=== PATIENT | male | born 1945 | race Caucasian/White ===

== ENCOUNTER 2017-02-08 14:36 | Day surgery (SDC) | payer MEDICARE, OTHER ==
[~2017-02-08] VITALS: Ht 185.4 cm; Wt 125.2 kg
[~2017-02-08 14:36] MED LIST: ALBU83IN INH; ALEV220C2 PO; CELE1CAP4 PO; CETI10CH PO; METO-398 PO; MULTCAP12 PO; SIMV40TA2 PO; SING10TA32 PO; WELLTAB38 PO
[2017-02-08] MEDS ORDERED: LR 1,000 ML IV SCH (14:45)
[2017-02-08] MEDS ORDERED: LEXA1TAB PO (15:04)
[2017-02-08] MEDS ORDERED: MUCI600T37 PO (15:04)
[2017-02-08] MEDS ORDERED: PROPOFOL 200 MG/20 ML VIAL As Ordered ONE (15:44)
[2017-02-08] MEDS ORDERED: LIDOCAINE 2% INJ 100 MG/5 ML SDV (FOR ANES.) As Ordered ONE (15:44)
--- NOTE | 2017-02-08 16:08 | ROOR ---
Patient Name: Avinash Salcedo Procedure Date: 02/08/2017 3:36 PM Date of : 1945 Age: 71 Room: [facility] Gender: Male Note Status: Finalized Procedure: Colonoscopy Indications: High risk colon cancer surveillance: Personal history of non-advanced adenoma, Last colonoscopy: 2012 Providers: Jovan Carvajal MD Referring MD: BS BASURTO MD Requesting Provider: Medicines: Monitored Anesthesia Care Complications: No immediate complications. Procedure: Pre-Anesthesia Assessment: - Prior to the procedure, a History and Physical was performed, and patient medications and allergies were reviewed. The patient is competent. The risks and benefits of the procedure and the sedation options and risks were discussed with the patient. All questions were answered and informed consent was obtained. Patient identification and proposed procedure were verified by the physician, the nurse and the eligibility counselor in the procedure room. Mental Status Examination: alert and oriented. Airway Examination: normal oropharyngeal airway and neck mobility. CV Examination: regular rate and rhythm. Prophylactic Antibiotics: The patient does not require prophylactic antibiotics. Prior Anticoagulants: The patient has taken no previous anticoagulant or antiplatelet agents. ASA Grade Assessment: III - A patient with severe systemic disease. After reviewing the risks and benefits, the patient was deemed in satisfactory condition to undergo the procedure. The anesthesia plan was to use monitored anesthesia care (MAC). Immediately prior to administration of medications, the patient was re-assessed for adequacy to receive sedatives. The heart rate, respiratory rate, oxygen saturations, blood pressure, adequacy of pulmonary ventilation, and response to care were monitored throughout the procedure. The physical status of the patient was re-assessed after the procedure. The Colonoscope was introduced through the anus and advanced to the cecum, identified by appendiceal orifice and ileocecal valve. The colonoscopy was performed without difficulty. The patient tolerated the procedure well. The quality of the bowel preparation was good. Findings: The perianal and digital rectal examinations were normal. Innumerable large-mouthed diverticula were found in the sigmoid colon and distal descending colon. The exam was otherwise without abnormality. Impression: - Severe diverticulosis in the sigmoid colon and in the distal descending colon. - The examination was otherwise normal. - No specimens collected. Recommendation: - Discharge patient to home. - Resume previous diet. - Continue present medications. - Repeat colonoscopy in 5 years for surveillance. oJvan Carvajal MD 02/08/2017 4:07:49 PM Number of Addenda: 0 Note Initiated On: 02/08/2017 3:36 PM Estimated Blood Loss: Estimated blood loss: none.
[2017-02-08 16:25] VITALS: BP 151/84
[2017-02-08] MEDS ORDERED: METOPROLOL SUCC (TopROL XL) 100MG *XL* TAB PO SCH (16:30)
== END 2017-02-08 16:33 | disposition home or self-care (01) ==
LOC: M OPP 14:36
PROVIDERS: ATTEND Surgery
DX: Z12.11 Encounter for screening for malignant neoplasm of colon (principal); Z86.010 Personal history of colon polyps; K57.30 Diverticulosis of large intestine without perforation or abscess without bleeding; I10 Essential (primary) hypertension; G47.30 Sleep apnea, unspecified; F41.9 Anxiety disorder, unspecified; F32.9 Major depressive disorder, single episode, unspecified; N40.0 Benign prostatic hyperplasia without lower urinary tract symptoms; E66.9 Obesity, unspecified; M19.90 Unspecified osteoarthritis, unspecified site; J98.4 Other disorders of lung; Z79.899 Other long term (current) drug therapy

== ENCOUNTER → 2017-09-08 | Outpatient (CLI) | payer MEDICARE, OTHER | LOC: M LRY 17:20 | DX: R05 Cough (principal) | CPT/HCPCS: 71046; G0463 ==

== ENCOUNTER → 2019-04-10 | Outpatient (CLI) | payer MEDICARE, OTHER ==
[~2019-04-10] MED LIST changes: +LEXA1TAB PO; -METO-398 PO; +METO200T28 PO; +MUCI600T37 PO; -SIMV40TA2 PO; +SIMV40TA20 PO
--- NOTE | 2019-04-10 17:19 | REP ---
Urinary tract sonography: History: Chronic kidney disease. Findings: Renal cortical echogenicity pattern is normal and contours are smooth. There is no evidence of hydronephrosis. No cyst or mass is seen. Right renal dimensions are 10.6 x 5.4 x 4.9 cm. Left kidney measures 10.5 x 5.7 x 5.4 cm. Impression: Unremarkable urinary tracts sonography. Electronically Signed by Stu Canales MD 04/10/2019 05:11 P
--- NOTE | 2019-04-10 17:20 | REP ---
Emptying ureteral jets are confirmed on color Doppler interrogation of the bladder lumen bilaterally. Pre void bladder volume is calculated to 136 ml and postvoid volume is calculated at 10 ml. Visualized bladder powell are smooth. No extra vesicle lesion is seen. Impression: Negative limited pelvic bladder sonography. Electronically Signed by Stu Canales MD 04/10/2019 05:11 P
== END ==
LOC: M RAD 15:59
PROVIDERS: ATTEND Internal Medicine Nephrology
DX: N18.3 Chronic kidney disease, stage 3 (moderate) (principal); E11.22 Type 2 diabetes mellitus with diabetic chronic kidney disease; I12.9 Hypertensive chronic kidney disease with stage 1 through stage 4 chronic kidney disease, or unspecified chronic kidney disease; N40.1 Benign prostatic hyperplasia with lower urinary tract symptoms

== ENCOUNTER → 2019-05-01 | Outpatient (CLI) | payer MEDICARE, OTHER ==
--- NOTE | 2019-05-03 03:41 | ECWPNPC ---
PATIENT NAME: BEHZAD SANTIAGO : 1945 GENDER: MALE VISIT DATE: 05/01/2019 DISCHARGE DATE: 05/01/19 1446 VISIT LOCKED DATE TIME: PHYSICIAN: EDUARD BLOOD RESOURCE: EDUARD BLOOD REASON FOR APPOINTMENT 1. CHRONIC NECK AND SHOULDER PX HISTORY OF PRESENT ILLNESS PAIN SCREENING: PATIENT HAS A COMPLAINT OF ACUTE OR CHRONIC PAIN :YES 74-YEAR-OLD MALE IN FOR INITIAL PAIN CONSULT. PATIENT HAS PAIN IN HIS SHOULDER THAT RADIATES DOWN HIS LEFT ARM. HE RATES HIS PAIN AT A 2 OUT OF 10 AND DESCRIBES IT STABBING, AND SHOOTING. WHEN ASKED PATIENT ADMITS TO INJURING HIS SHOULDER APPROXIMATELY ONE YEAR AGO WHEN SWIMMING. HE DOES ADMIT TO INTERMITTENT USE OF A TENS UNIT AT HOME. FALL RISK SCREENING: SCREENING :NO FALLS REPORTED IN THE LAST YEAR CURRENT MEDICATIONS TAKING SINGULAIR 10 MG TABLET 1 TABLET IN THE EVENING ORALLY ONCE A DAY TAKING ZYRTEC ALLERGY 10 MG TABLET 1 TABLET ORALLY ONCE A DAY PRN TAKING CELECOXIB 200 MG CAPSULE 1-2 ORALLY ONCE A DAY TAKING LEXAPRO 10 MG TABLET 1 TABLET ORALLY ONCE A DAY TAKING ROSUVASTATIN CALCIUM 20 MG TABLET 1 TABLET ORALLY ONCE A DAY TAKING LISINOPRIL 10 MG TABLET 1 TABLET ORALLY ONCE A DAY TAKING WELLBUTRIN XL 150 MG TABLET EXTENDED RELEASE 24 HOUR 1 TABLET IN THE MORNING ORALLY ONCE A DAY TAKING MULTIVITAMIN ADULT - TABLET ORALLY DAILY TAKING TYLENOL EXTRA STRENGTH 500 MG TABLET 2 TABLET ORALLY BID TAKING VASCEPA 1 GM CAPSULE 2 CAPSULES WITH MEALS ORALLY TWICE A DAY TAKING METFORMIN HCL 500 MG TABLET 1 TABLET WITH A MEAL ORALLY BID NOT-TAKING ALEVE 220 MG TABLET 1 TABLET WITH FOOD OR MILK NEEDED ORALLY EVERY 12 HRS NOT-TAKING BUPROPION HCL 150 MG TABLET EXTENDED RELEASE 24 HOUR 1 TABLET EVERY MORNING ORALLY ONCE A DAY NOT-TAKING SIMVASTATIN 10 5MG TABLET 1TAB ORAL DAILY NOT-TAKING METOPROLOL SUCCINATE 200 MG TABLET EXTENDED RELEASE ORALLY NOT-TAKING AUGMENTIN 875-125 MG TABLET 1 TABLET ORALLY EVERY 12 HRS NOT-TAKING PREDNISONE 20 MG TABLET 1 TABLET ORALLY BID NOT-TAKING PROAIR HFA 108 (90 BASE) MCG/ACT AEROSOL SOLUTION 2 PUFFS NEEDED INHALATION EVERY 4 HRS NOT-TAKING AVODART 0.5 MG CAPSULE 1 CAP(S) P.O. 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 ALLERGIC RHINITIS LOW BACK PAIN = DDDL-SPINE HLP DEPRESSION HTN ELEVATED PSA DM TYPE II MILD EMPHYSEMA NECK/SHOULDER PAIN ALLERGIES AUGMENTIN: HIVES - ALLERGY SURGICAL HISTORY SINUS SURGERY 1988, 2011 VASECTOMY 1986 BUTTON-TURP VAPORIZATION 06/2012 LEFT KNEE PARTIAL REPLACEMENT 11/2018 RIGHT KNEE PARTIAL REPLACEMENT 02/2019 LOOP RECORDER IMPLANTED 09/2018 FAMILY HISTORY FATHER: 89 YRS, RENAL CARINOMA, DM, [place], PACEMAKER, DIAGNOSED WITH DIABETES, HYPERTENSION MOTHER: ALIVE 92 YRS, PACEMAKER, HTN, ESSENTIAL TREMOR, RESTRICTIVE AIRWAY DISEASE, HYPERTENSION SIBLINGS: ALIVE 60 YRS, OPEN HEART SURGERY 02/2018. DM, HTN, HYPERCHOLESTEROL, DIABETES, HYPERTENSION, UNSPECIFIED HEART DISEASE SON(S): ALIVE, OBESITY = GASTRIC BYPASS, HYPERTENSION DAUGHTER(S): ALIVE, OBESITY = GASTRIC BYPASS 1 SISTER(S) . 1 SON(S) , 1 DAUGHTER(S) . FATEHR - RENAL CANCER W/ METASTASIS TO LUNG AND BONEMOTHER - HIATAL HERNIA, OSTEOPOROSISDAUGHTER - BACK PROBLEMS. SOCIAL HISTORY GENERAL: TOBACCO USE ARE YOU A:FORMER SMOKER SMOKED 1-1.5 PPD STARTED AT 19YRS OLD AND QUIT 2000 HOW LONG HAS IT BEEN SINCE YOU LAST SMOKED?> 10 YEARS HIV / HEP-C SCREENING HIV TEST OFFERED TO PATIENT:YES DATE OFFERED:09/08/2017 TEST ACCEPTED:NO HEP-C TEST OFFERED TO PATIENT:YES DATE OFFERED:09/08/2017 REASON:PATIENT DECLINED TEST ACCEPTED:NO REASON:PATIENT DECLINED BROCHURE PROVIDED TO PATIENTNO EDUCATION LEVEL OF EDUCATION:FINISHED HIGH SCHOOL DIET: CARBOHYDRATE CONTROLLED. LANGUAGE LANGUAGES SPOKEN:ITALIAN DOMESTIC VIOLENCE DO YOU FEEL SAFE IN YOUR ENVIRONMENT?YES RECREATIONAL DRUG USE DRUG USE?NO EXERCISE: WALKS. LEARNING BARRIERS / SPECIAL NEEDS BARRIERS TO LEARNING?NO HEARING IMPAIRED?YES [place] RIGHT EAR = HEARING AID BUT DOESNT WEAR MUCH VISION IMPAIRED?YES :CORRECTIVE LENSES COGNITIVELY IMPAIRED?NO READINESS TO LEARN?YES LEARNING PREFERENCES?NO LEARNING CAPABILITIES PRESENT?YES EMOTIONAL BARRIERS?NO SPECIAL DEVICES?NO GRAPHIC DESIGNER NEEDED?NO PAIN CLINIC PFS, CLERGY, PUBLIC HEALTH REFERRALS HAS THE PATIENT BEEN EDUCATED REGARDING HIS/HER PLAN OF CARE?YES HAS THE PATIENT BEEN EDUCATED REGARDING PAIN, THE RISK FOR PAIN, THE IMPORTANCE OF EFFECTIVE PAIN MANAGEMENT, AND THE PAIN ASSESSMENT PROCESS?YES LATEX QUESTIONNAIRE LATEX ALLERGY : HAVE YOU EVER DEVELOPED ANY TYPE OF REACTION AFTER HANDLING LATEX PRODUCTS SUCH RUBBER GLOVES, CONDOMS, DIAPHRAGMS, BALLOONS, SOCKS, OR UNDERWEAR?NO LATEX ALLERGY : HAVE YOU EVER DEVELOPED ANY TYPE OF REACTION DURING OR AFTER DENTAL APPOINTMENT, VAGINAL/RECTAL EXAMINATION, SURGICAL PROCEDURE, OR ANY OTHER EXPOSURE?NO LATEX RISK : HAVE YOU EVER HAD ANY DIFFICULTY BREATHING OR HIVES AFTER EATING OR HANDLING ANY FRUITS, OR VEGETABLES; SUCH KIWI, BANANAS, STONE FRUITS, OR CHESTNUTSNO LATEX RISK : DO YOU HAVE A PREVIOUS PERSONAL HISTORY OF MORE THAN NINE SURGERIES, SPINA BIFIDA, OR REPEATED CATHERIZATIONS? NO LATEX RISK : ARE YOU FREQUENTLY EXPOSED TO LATEX PRODUCTS IN YOUR OCCUPATION?NO DATE ASKED : 05/01/2019 CAFFEINE CAFFEINE USE?YES COFFEE = 1-2 CUPS PER DAY ADVANCE DIRECTIVE ADVANCE DIRECTIVE DISCUSSED WITH PATIENT:YES HCP - BOY PRUITT EVANGELICAL [id number] CONFUCIANIST NO MORAVIAN BELIEFS THAT WOULD IMPACT HEALTH CARE. MARITAL STATUS: . ALCOHOL SCREENING DID YOU HAVE A DRINK CONTAINING ALCOHOL IN THE PAST YEAR?YES HOW OFTEN DID YOU HAVE A DRINK CONTAINING ALCOHOL IN THE PAST YEAR?MONTHLY OR LESS (1 POINT) HOW MANY DRINKS DID YOU HAVE ON A TYPICAL DAY WHEN YOU WERE DRINKING IN THE PAST YEAR?1 OR 2 (0 POINTS) HOW OFTEN DID YOU HAVE SIX OR MORE DRINKS ON ONE OCCASION IN THE PAST YEAR?NEVER (0 POINTS) POINTS1 INTERPRETATIONNEGATIVE OCCUPATION: RETIRED . SEXUAL HX HAD SEX IN THE LAST 12 MONTHS (VAGINAL, ORAL, OR ANAL)?YES WITHWOMEN ONLY USE PROTECTION?NO HAVE YOU EVER HAD AN STD?NO REVIEWED WITH PATIENT 05/01/2019 8209 JS. HOSPITALIZATION/MAJOR DIAGNOSTIC PROCEDURE SURGICAL RELATED REVIEW OF SYSTEMS REVIEWED BY: PROVIDER: TY AGUIRRE . CONSTITUTIONAL: ANY CHANGE IN YOUR MEDICAL CONDITION? NO . CHILLS NO . FEVER NO . INFECTION: DO YOU HAVE NEW INFECTIONS? NO . DO YOU HAVE HISTORY OF MRSA? NO . MUSCULOSKELETAL: ANY NEW PATTERNS OF PAIN OR NUMBNESS? YES, STATES LESS PAIN IN SHOULDER DUE TO BEING LESS ACTIVE RECENTLY . SYTEMIC LUPUS NO . GASTROENTEROLOGY: ANY NEW CHANGE IN BOWEL CONTROL? NO . BARRETTS ESOPHAGUS NO . CIRRHOSIS NO . HEPATITIS NO . LIVER FAILURE NO . ACID REFLUX NO . UNEXPLAINED WEIGHT LOSS NO . GENITOURINARY: ANY NEW CHANGE IN BLADDER CONTROL? NO . IS THERE A CHANCE YOU COULD BE ? NO . HEMATOLOGY/LYMPH: DO YOU TAKE ANY BLOOD THINNERS? (FOR EXAMPLE- COUMADIN, PLAVIX, AGGRENOX, PLATEL, PRADAXA, OR XARELTO) NO . WHEN WAS YOUR LAST DOSE? DATE: TIME: . LOW PLATELET COUNT NO . SICKLE CELL DISEASE NO . VON WILLIEBRANDS NO . FACTOR V LEIDEN NO . THALLASEMIA NO . ANEMIA NO . EASY BRUISING NO . NEUROLOGY: HAVE YOU FALLEN IN THE PAST 12 MONTHS? NO . ANY NEW EXTREMITY NUMBNESS OR WEAKNESS? YES, STATES NUMBNESS IN FOREARM AND PINKY AND RING FINGERS, LEFT>RIGHT . HEAD INJURY NO . DEMENTIA NO . CEREBRAL PALSY NO . MULTIPLE SCLEROSIS NO . DIZZINESS NO . HEADACHE NO . STROKES NO . VERTIGO NO . CARDIOLOGY: DO YOU HAVE A PACEMAKER OR DEFIBRILLATOR? IMPLANTED LOOP RECORDER - WAS IMPLANTED DUE TO DIZZINESS/LIGHTHEADNESS - HALTER MONITOR SHOWED TACHY RHYTHMS - NO ISSUES SINCE CHANGING DIET OR SINCE IMPLANT . ANGINA NO . HEART ATTACK NO . HEART SURGERY NO . CONGESTIVE HEART FAILURE/FLUID OVERLOAD NO . CHEST PAIN NO . HIGH BLOOD PRESSURE ON MEDICATION(S) . IRREGULAR HEART BEAT NO . RESPIRATORY: HAVE YOU BEEN SICK IN THE PAST WEEK? NO . FEVER NO . FLU LIKE SYMPTOMS? NO . CPAP YES . BYPAP NO . ASTHMA NO . EMPHYSEMA YES - MILD . CHRONIC LUNG DISEASES NO . SHORTNESS OF BREATH ON EXERTION NO . COUGH NO . SNORING NO . INTEGUMENTARY: DO YOU HAVE ANY RASHES OR OPEN SORES? NO . ALLERGIC/IMMUNO: ARE YOU ALLERGIC TO IV DYE? NO . ANY NEW ALLERGIES? NO . PSYCHIATRIC: DO YOU HAVE THOUGHTS OF HURTING YOURSELF OR SOMEONE ELSE? NO . ARE YOU ABUSED, NEGLECTED, OR IN AN UNSAFE ENVIRONMENT? NO . ENDOCRINOLOGY: ARE YOU DIABETIC? YES, TYPE II . THYROID DISORDER NO . OTHER: DO YOU NEED ANY PRESCRIPTIONS? NO . IF YES, PLEASE LIST: ____ . ANY NEW PROBLEMS WITH YOUR MEDICATIONS? NO . WHEN DID YOU LAST EAT? ____ . WHEN DID YOU LAST DRINK? ____ . WHAT DID YOU LAST DRINK? ____ . NAME OF PERSON DRIVING YOU HOME? ____ . DO YOU HAVE ANY OTHER QUESTIONS OR CONCERNS YES, STATES PAIN IN LEFT SHOULDER FROM INJURY APPROXIMATELY 1 YEAR AGO - HAS NOT SUBSIDED WITH MEDICATIONS, BIOWAVE, REST, OR HEAT . EXAMINATION GENERAL EXAMINATION: GENERALNO ACUTE DISTRESS, WELL NOURISHED AND HYDRATED. PSYCHAPPROPRIATE MOOD AND AFFECT . NECK:DENIES POINT TENDERNESS ALONG CERVICAL SPINE, SURROUNDING SKIN SHOWS NO ERYTHEMA, ECCHYMOSIS, INCREASED WARMTH, AND/OR SKIN ERUPTIONS NOTED. PATIENT DENIES INCREASED PAIN AND/OR RADICULAR SYMPTOMS WHEN ASKED TO LIFT ARMS AGAINST RESISTANCE. . LUNGS:CLEAR TO AUSCULTATION BILATERALLY, NO WHEEZES, RHONCHI, RALES. HEART:NO MURMURS, REGULAR RATE AND RHYTHM. MUSCULOSKELETAL:POINT TENDER ALONG JOINT LINE, PATIENT DENIES INCREASED PAIN WITH ABDUCTION OR ADDUCTION OF THE LEFT UPPER EXTREMITY . ASSESSMENTS PAIN IN LEFT SHOULDER - M25.512 (PRIMARY) TREATMENT PAIN IN LEFT SHOULDER MRI : SHOULDER, [id number] CLINICAL NOTES: 74-YEAR-OLD MALE IN FOR INITIAL PAIN CONSULT. GIVEN PRESENTING SYMPTOMS AND RESULTS OF PHYSICAL EXAMINATION RECOMMENDED MRI OF LEFT SHOULDER WITH FOLLOW-UP AFTER DIAGNOSTIC IMAGING. PATIENT HAS EXPRESSED UNDERSTANDING OF AND WAS IN AGREEMENT WITH TREATMENT PLAN. GIVEN TIME TO ASK QUESTIONS AND EXPRESS CONCERNS. PROCEDURE CODES FA211 ESTABILISHED PATIENT [facility] FACILITY CHARGE DISPOSITION & COMMUNICATION FOLLOW UP AFTER IMAGING (REASON: LEFT SHOULDER PAIN, MRI LEFT SHOULDER) ELECTRONICALLY SIGNED BY ZENON ZAVALA ON 05/02/2019 AT 03:48 PM EST DISCLAIMER : THIS IS A VISIT SUMMARY EXTRACTED FROM THE [employer] CHART. IT IS NOT A COPY OF THE [employer] PROGRESS NOTE. SUBHA
== END ==
LOC: M PAIN 13:15
PROVIDERS: ATTEND Family Medicine
DX: M25.512 Pain in left shoulder (principal); G47.30 Sleep apnea, unspecified; Z86.59 Personal history of other mental and behavioral disorders; I10 Essential (primary) hypertension; E11.9 Type 2 diabetes mellitus without complications; J43.9 Emphysema, unspecified; Z87.891 Personal history of nicotine dependence; Z88.1 Allergy status to other antibiotic agents; Z79.84 Long term (current) use of oral hypoglycemic drugs; Z79.899 Other long term (current) drug therapy

== ENCOUNTER → 2019-05-14 | Outpatient (CLI) | payer MEDICARE, OTHER ==
--- NOTE | 2019-05-16 00:44 | ECWPNPC ---
PATIENT NAME: BEHZAD SANTIAGO : 1945 GENDER: MALE VISIT DATE: 05/14/2019 DISCHARGE DATE: 05/14/19 1441 VISIT LOCKED DATE TIME: PHYSICIAN: EDUARD BLOOD RESOURCE: EDUARD BLOOD REASON FOR APPOINTMENT 1. REVIEW MRI HISTORY OF PRESENT ILLNESS HISTORY OF PRESENT ILLNESS: PAIN THE PATIENT DESCRIBES THE PAIN... 74-YEAR-OLD MALE IN FOR CHRONIC PAIN FOLLOW-UP AND TO REVIEW RECENT MRI. HE RATES HIS PAIN CURRENTLY AT A 1 OUT OF 10 AND DESCRIBES IT SORE. FALL RISK SCREENING: SCREENING :NO FALLS REPORTED IN THE LAST YEAR CURRENT MEDICATIONS TAKING SINGULAIR 10 MG TABLET 1 TABLET IN THE EVENING ORALLY ONCE A DAY TAKING ZYRTEC ALLERGY 10 MG TABLET 1 TABLET ORALLY ONCE A DAY PRN TAKING CELECOXIB 200 MG CAPSULE 1-2 ORALLY ONCE A DAY TAKING LEXAPRO 10 MG TABLET 1 TABLET ORALLY ONCE A DAY TAKING ROSUVASTATIN CALCIUM 20 MG TABLET 1 TABLET ORALLY ONCE A DAY TAKING LISINOPRIL 40 MG TABLET 1 TABLET ORALLY ONCE A DAY TAKING WELLBUTRIN XL 150 MG TABLET EXTENDED RELEASE 24 HOUR 1 TABLET IN THE MORNING ORALLY ONCE A DAY TAKING MULTIVITAMIN ADULT - TABLET ORALLY DAILY TAKING TYLENOL EXTRA STRENGTH 500 MG TABLET 1-2 TABLET ORALLY BID TAKING VASCEPA 1 GM CAPSULE 2 CAPSULES WITH MEALS ORALLY TWICE A DAY TAKING METFORMIN HCL 500 MG TABLET 1 TABLET WITH A MEAL ORALLY BID NOT-TAKING ALEVE 220 MG TABLET 1 TABLET WITH FOOD OR MILK NEEDED ORALLY EVERY 12 HRS NOT-TAKING BUPROPION HCL 150 MG TABLET EXTENDED RELEASE 24 HOUR 1 TABLET EVERY MORNING ORALLY ONCE A DAY NOT-TAKING SIMVASTATIN 10 5MG TABLET 1TAB ORAL DAILY NOT-TAKING METOPROLOL SUCCINATE 200 MG TABLET EXTENDED RELEASE ORALLY NOT-TAKING AUGMENTIN 875-125 MG TABLET 1 TABLET ORALLY EVERY 12 HRS NOT-TAKING PREDNISONE 20 MG TABLET 1 TABLET ORALLY BID NOT-TAKING PROAIR HFA 108 (90 BASE) MCG/ACT AEROSOL SOLUTION 2 PUFFS NEEDED INHALATION EVERY 4 HRS NOT-TAKING AVODART 0.5 MG CAPSULE 1 CAP(S) P.O. 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 ALLERGIC RHINITIS LOW BACK PAIN = DDDL-SPINE HLP DEPRESSION HTN ELEVATED PSA DM TYPE II MILD EMPHYSEMA NECK/SHOULDER PAIN ALLERGIES AUGMENTIN: HIVES - ALLERGY SURGICAL HISTORY SINUS SURGERY 1988, 2011 VASECTOMY 1986 BUTTON-TURP VAPORIZATION 06/2012 LEFT KNEE PARTIAL REPLACEMENT 11/2018 RIGHT KNEE PARTIAL REPLACEMENT 02/2019 LOOP RECORDER IMPLANTED 09/2018 FAMILY HISTORY FATHER: 89 YRS, RENAL CARINOMA, DM, [place], PACEMAKER, DIAGNOSED WITH DIABETES, HYPERTENSION MOTHER: ALIVE 92 YRS, PACEMAKER, HTN, ESSENTIAL TREMOR, RESTRICTIVE AIRWAY DISEASE, HYPERTENSION SIBLINGS: ALIVE 60 YRS, OPEN HEART SURGERY 02/2018. DM, HTN, HYPERCHOLESTEROL, DIABETES, HYPERTENSION, UNSPECIFIED HEART DISEASE SON(S): ALIVE, OBESITY = GASTRIC BYPASS, HYPERTENSION DAUGHTER(S): ALIVE, OBESITY = GASTRIC BYPASS 1 SISTER(S) . 1 SON(S) , 1 DAUGHTER(S) . FATHER - RENAL CANCER W/ METASTASIS TO LUNG AND BONEMOTHER - HIATAL HERNIA, OSTEOPOROSISDAUGHTER - BACK PROBLEMS. SOCIAL HISTORY GENERAL: TOBACCO USE ARE YOU A:FORMER SMOKER SMOKED 1-1.5 PPD STARTED AT 19YRS OLD AND QUIT 2000 HOW LONG HAS IT BEEN SINCE YOU LAST SMOKED?> 10 YEARS HIV / HEP-C SCREENING HIV TEST OFFERED TO PATIENT:YES DATE OFFERED:09/08/2017 TEST ACCEPTED:NO HEP-C TEST OFFERED TO PATIENT:YES DATE OFFERED:09/08/2017 REASON:PATIENT DECLINED TEST ACCEPTED:NO REASON:PATIENT DECLINED BROCHURE PROVIDED TO PATIENTNO EDUCATION LEVEL OF EDUCATION:FINISHED HIGH SCHOOL DIET: CARBOHYDRATE CONTROLLED. LANGUAGE LANGUAGES SPOKEN:[place]ELSH DOMESTIC VIOLENCE DO YOU FEEL SAFE IN YOUR ENVIRONMENT?YES RECREATIONAL DRUG USE DRUG USE?NO EXERCISE: WALKS. LEARNING BARRIERS / SPECIAL NEEDS BARRIERS TO LEARNING?NO HEARING IMPAIRED?YES [place] RIGHT EAR = HEARING AID BUT DOESNT WEAR MUCH VISION IMPAIRED?YES COGNITIVELY IMPAIRED?NO :CORRECTIVE LENSES READINESS TO LEARN?YES LEARNING PREFERENCES?NO LEARNING CAPABILITIES PRESENT?YES EMOTIONAL BARRIERS?NO SPECIAL DEVICES?NO EXPENDITURE REQUISITION CLERK NEEDED?NO PAIN CLINIC PFS, CLERGY, PUBLIC HEALTH REFERRALS HAS THE PATIENT BEEN EDUCATED REGARDING HIS/HER PLAN OF CARE?YES HAS THE PATIENT BEEN EDUCATED REGARDING PAIN, THE RISK FOR PAIN, THE IMPORTANCE OF EFFECTIVE PAIN MANAGEMENT, AND THE PAIN ASSESSMENT PROCESS?YES LATEX QUESTIONNAIRE LATEX ALLERGY : HAVE YOU EVER DEVELOPED ANY TYPE OF REACTION AFTER HANDLING LATEX PRODUCTS SUCH RUBBER GLOVES, CONDOMS, DIAPHRAGMS, BALLOONS, SOCKS, OR UNDERWEAR?NO LATEX ALLERGY : HAVE YOU EVER DEVELOPED ANY TYPE OF REACTION DURING OR AFTER DENTAL APPOINTMENT, VAGINAL/RECTAL EXAMINATION, SURGICAL PROCEDURE, OR ANY OTHER EXPOSURE?NO DATE ASKED : 05/01/2019 LATEX RISK : HAVE YOU EVER HAD ANY DIFFICULTY BREATHING OR HIVES AFTER EATING OR HANDLING ANY FRUITS, OR VEGETABLES; SUCH KIWI, BANANAS, STONE FRUITS, OR CHESTNUTSNO LATEX RISK : DO YOU HAVE A PREVIOUS PERSONAL HISTORY OF MORE THAN NINE SURGERIES, SPINA BIFIDA, OR REPEATED CATHERIZATIONS? NO LATEX RISK : ARE YOU FREQUENTLY EXPOSED TO LATEX PRODUCTS IN YOUR OCCUPATION?NO CAFFEINE CAFFEINE USE?YES COFFEE = 1-2 CUPS PER DAY ADVANCE DIRECTIVE ADVANCE DIRECTIVE DISCUSSED WITH PATIENT:YES HCP - BOY PRUITT SABIANIST [id number] TENRIISM NO ISLAM BELIEFS THAT WOULD IMPACT HEALTH CARE. MARITAL STATUS: . ALCOHOL SCREENING DID YOU HAVE A DRINK CONTAINING ALCOHOL IN THE PAST YEAR?YES HOW OFTEN DID YOU HAVE SIX OR MORE DRINKS ON ONE OCCASION IN THE PAST YEAR?NEVER (0 POINTS) HOW MANY DRINKS DID YOU HAVE ON A TYPICAL DAY WHEN YOU WERE DRINKING IN THE PAST YEAR?1 OR 2 (0 POINTS) HOW OFTEN DID YOU HAVE A DRINK CONTAINING ALCOHOL IN THE PAST YEAR?MONTHLY OR LESS (1 POINT) POINTS1 INTERPRETATIONNEGATIVE OCCUPATION: RETIRED . SEXUAL HX HAD SEX IN THE LAST 12 MONTHS (VAGINAL, ORAL, OR ANAL)?YES WITHWOMEN ONLY USE PROTECTION?NO HAVE YOU EVER HAD AN STD?NO REVIEWED WITH PATIENT 05/01/2019 1359 JS. HOSPITALIZATION/MAJOR DIAGNOSTIC PROCEDURE SURGICAL RELATED REVIEW OF SYSTEMS REVIEWED BY: PROVIDER: TY AGUIRRE . CONSTITUTIONAL: ANY CHANGE IN YOUR MEDICAL CONDITION? NO . CHILLS NO . FEVER NO . INFECTION: DO YOU HAVE NEW INFECTIONS? NO . DO YOU HAVE HISTORY OF MRSA? NO . MUSCULOSKELETAL: ANY NEW PATTERNS OF PAIN OR NUMBNESS? NO . GASTROENTEROLOGY: ANY NEW CHANGE IN BOWEL CONTROL? NO . GENITOURINARY: ANY NEW CHANGE IN BLADDER CONTROL? NO . IS THERE A CHANCE YOU COULD BE ? NO . HEMATOLOGY/LYMPH: DO YOU TAKE ANY BLOOD THINNERS? (FOR EXAMPLE- COUMADIN, PLAVIX, AGGRENOX, PLATEL, PRADAXA, OR XARELTO) NO . WHEN WAS YOUR LAST DOSE? DATE: TIME: . NEUROLOGY: HAVE YOU FALLEN IN THE PAST 12 MONTHS? NO . ANY NEW EXTREMITY NUMBNESS OR WEAKNESS? NO . CARDIOLOGY: DO YOU HAVE A PACEMAKER OR DEFIBRILLATOR? NO; DOES HAVE A LOOP RECORDER . RESPIRATORY: HAVE YOU BEEN SICK IN THE PAST WEEK? NO . FEVER NO . FLU LIKE SYMPTOMS? NO . COUGH YES . INTEGUMENTARY: DO YOU HAVE ANY RASHES OR OPEN SORES? NO . ALLERGIC/IMMUNO: ARE YOU ALLERGIC TO IV DYE? NO . ANY NEW ALLERGIES? NO . PSYCHIATRIC: DO YOU HAVE THOUGHTS OF HURTING YOURSELF OR SOMEONE ELSE? NO . ARE YOU ABUSED, NEGLECTED, OR IN AN UNSAFE ENVIRONMENT? NO . ENDOCRINOLOGY: ARE YOU DIABETIC? YES . OTHER: DO YOU NEED ANY PRESCRIPTIONS? NO . IF YES, PLEASE LIST: ____ . ANY NEW PROBLEMS WITH YOUR MEDICATIONS? NO . WHEN DID YOU LAST EAT? ____ . WHEN DID YOU LAST DRINK? ____ . WHAT DID YOU LAST DRINK? ____ . NAME OF PERSON DRIVING YOU HOME? ____ . DO YOU HAVE ANY OTHER QUESTIONS OR CONCERNS NO . VITAL SIGNS WT 276.2 LBS, HT 72 IN, BMI 37.46 INDEX, BP 159/75 MM HG, HR 94 /MIN, RR 18 /MIN, TEMP 96.2 F, OXYGEN SAT % 95%, NA INITIALS AW 1409, REVIEWED BY: ESTELLE. EXAMINATION GENERAL EXAMINATION: GENERALNO ACUTE DISTRESS, WELL NOURISHED AND HYDRATED. PSYCHAPPROPRIATE MOOD AND AFFECT . LUNGS:CLEAR TO AUSCULTATION BILATERALLY, NO WHEEZES, RHONCHI, RALES. HEART:NO MURMURS, REGULAR RATE AND RHYTHM. ASSESSMENTS PAIN IN LEFT SHOULDER - M25.512 (PRIMARY) TREATMENT PAIN IN LEFT SHOULDER CLINICAL NOTES: 74-YEAR-OLD MALE IN FOR CHRONIC PAIN FOLLOW-UP. MRI REVIEWED WITH PATIENT AND GIVEN RESULTS RECOMMENDED REFERRAL TO ORTHOPEDICS FOR FURTHER EVALUATION. [facility] AND WILL CONTACT THEM REGARDING ORTHOPEDIC CONSULT. PATIENT HAS EXPRESSED UNDERSTANDING OF AND WAS IN AGREEMENT WITH TREATMENT PLAN. GIVEN TIME TO ASK QUESTIONS AND EXPRESS CONCERNS. . PROCEDURE CODES FA211 ESTABILISHED PATIENT [facility] FACILITY CHARGE DISPOSITION & COMMUNICATION FOLLOW UP NEEDED (REASON: LEFT SHOULDER PAIN) ELECTRONICALLY SIGNED BY ZENON ZAVALA ON 05/15/2019 AT 08:45 AM EST DISCLAIMER : THIS IS A VISIT SUMMARY EXTRACTED FROM THE [employer] CHART. IT IS NOT A COPY OF THE [employer] PROGRESS NOTE. MTDD
== END ==
LOC: M PAIN 14:15
PROVIDERS: ATTEND Family Medicine
DX: M25.512 Pain in left shoulder (principal); G89.29 Other chronic pain; G47.30 Sleep apnea, unspecified; Z86.59 Personal history of other mental and behavioral disorders; I10 Essential (primary) hypertension; E11.9 Type 2 diabetes mellitus without complications; Z96.653 Presence of artificial knee joint, bilateral; Z87.891 Personal history of nicotine dependence; Z88.1 Allergy status to other antibiotic agents; Z79.84 Long term (current) use of oral hypoglycemic drugs; Z79.899 Other long term (current) drug therapy

== ENCOUNTER → 2019-11-08 | Outpatient (REF) | payer MEDICARE, OTHER ==
[2019-12-08 03:17] LABS: BACTERIA, URINE AUTO NEGATIVE (NEGATIVE); CALCIUM OXALATE CRYSTALS SMALL; MUCUS, URINE SMALL (NEGATIVE); RBC, URINE AUTO 113 /HPF (0-3); SQUAMOUS EPITHELIAL CELL UR AU 0 /HPF (0-6); WBC, URINE AUTO 12 /HPF (0-3)
== END ==
LOC: M LAB REF 10:51
PROVIDERS: ATTEND Internal Medicine Nephrology
DX: R31.9 Hematuria, unspecified (principal)

== ENCOUNTER → 2020-02-27 | Outpatient (REF) | payer MEDICARE, OTHER ==
[2020-02-27 18:12] LABS: APPEARANCE, URINE CLEAR (CLEAR); BACTERIA, URINE AUTO NEGATIVE (NEGATIVE); BILIRUBIN, URINE AUTO NEGATIVE (NEGATIVE); BLOOD, URINE BLOOD 2+ (NEGATIVE); COLOR, URINE YELLOW (YELLOW); GLUCOSE, URINE (UA) AUTO NEGATIVE (NEGATIVE); KETONE, URINE AUTO NEGATIVE (NEGATIVE); LEUKOCYTE ESTERASE, URINE AUTO NEGATIVE (NEGATIVE); MUCUS, URINE SMALL (NEGATIVE); NITRITE, URINE AUTO NEGATIVE (NEGATIVE); PROTEIN, URINE AUTO NEGATIVE (NEGATIVE); RBC, URINE AUTO 54 /HPF (0-3); SPECIFIC GRAVITY URINE AUTO 1.024 (1.002-1.035); SQUAMOUS EPITHELIAL CELL UR AU 0 /HPF (0-6); WBC, URINE AUTO 4 /HPF (0-3)
== END ==
LOC: M SMT 17:14
PROVIDERS: ATTEND Urology
DX: R31.9 Hematuria, unspecified (principal)
CPT/HCPCS: 81001; G0463

== ENCOUNTER → 2020-10-16 | Outpatient (REF) | payer MEDICARE, OTHER | LOC: M LAB REF 17:05 | PROVIDERS: ATTEND Internal Medicine Nephrology | DX: N18.31 Chronic kidney disease, stage 3a (principal) ==

== ENCOUNTER 2020-11-23 13:56 | Inpatient (IN) | payer MEDICARE, OTHER ==
[~2020-11-23] VITALS: Ht 185.4 cm; Wt 128.2 kg
--- NOTE | 2020-11-23 16:30 | REP ---
INDICATION: r/o dvt COMPARISON: None. TECHNIQUE: Méndez scale and color Doppler evaluation using linear high frequency transducer. FINDINGS: Ultrasound examination of the right lower extremity demonstrates nonocclusive thrombus in the common femoral and popliteal veins with patent duplicated superficial femoral veins and calf veins. Contralateral CFV is patent and normal. IMPRESSION: Nonocclusive thrombus identified in the common femoral vein and popliteal vein. <Electronically signed by Ziyad Barker > 11/23/20 [id number]
[2020-11-23 17:06] LABS: BASO % 0.3 % (0.0-1.0); EOS % 0.4 % (0.0-3.0); HEMATOCRIT 23.4 % (42.0-52.0); HEMOGLOBIN 7.8 g/dl (13.5-17.5); LYMPH # 0.9 10^3/uL (1.5-5.0); LYMPH % 11.9 % (24.0-44.0); MEAN CORPUSCULAR HEMOGLOBIN 34.4 pg (27.0-33.0); MEAN CORPUSCULAR HGB CONC 33.3 g/dl (32.0-36.5); MEAN CORPUSCULAR VOLUME 103.1 fl (80.0-96.0); MONO # 0.4 10^3/uL (0.0-0.8); MONO % 5.3 % (2.0-8.0); NEUTROPHILS # 6.1 10^3/uL (1.5-8.5); RED BLOOD COUNT 2.27 10^6/uL (4.30-6.10); WHITE BLOOD COUNT 7.6 10^3/uL (4.0-10.0)
[2020-11-23 17:09] LABS: INR 1.42; PROTHROMBIN TIME 17.8 SECONDS (12.7-14.5)
[2020-11-23 17:12] LABS: D-DIMER QUANT 2149.34 ng/ml (<500)
[2020-11-23 17:25] LABS: ALBUMIN 3.5 GM/DL (3.2-5.2); BILIRUBIN,DIRECT 0.2 MG/DL (0.0-0.2); BILIRUBIN,TOTAL 0.4 MG/DL (0.2-1.0); C REACTIVE PROTEIN QUANTITATIV 0.37 MG/DL (0.00-0.30)
[2020-11-23 17:39] LABS: ERYTHROCYTE SEDIMENTATION RATE 79 mm/hr (0-20); PLATELET COUNT, AUTOMATED 17 10^3/uL (150-450)
[2020-11-23] MEDS ORDERED: NS 500 ML IV ONE (17:45)
[2020-11-23] MEDS ORDERED: ISOVUE-370 76% 100ML VIAL As Ordered ONE (17:48)
[2020-11-23] MEDS ORDERED: METF10004 PO (18:28)
[2020-11-23] MEDS ORDERED: MONT10TA10 PO (18:28)
[2020-11-23] MEDS ORDERED: D31000TA2 PO (18:28)
[2020-11-23] MEDS ORDERED: ROSU20TA5 PO (18:28)
[2020-11-23] MEDS ORDERED: BUPR150T12 PO (18:28)
[2020-11-23] MEDS ORDERED: CETI-24 PO (18:28)
[2020-11-23] MEDS ORDERED: LEXA1TAB PO (18:28)
[2020-11-23] MEDS ORDERED: VASC1CAP2 PO (18:28)
[2020-11-23] MEDS ORDERED: LISI30TA4 PO (18:28)
[2020-11-23] MEDS ORDERED: ELIQ5TAB PO (18:28)
[2020-11-23] MEDS ORDERED: LISI40TA4 PO (18:28)
[2020-11-23] MEDS ORDERED: JANU25TA PO (18:28)
[2020-11-23] MEDS ORDERED: FERR32TA PO (18:28)
--- NOTE | 2020-11-23 18:31 | REPVR ---
PROCEDURE INFORMATION: Exam: CTA Chest With Contrast Exam date and time: 11/23/2020 5:58 PM Age: 75 years old Clinical indication: Shortness of breath; Additional info: Dvt/hx saddle embolism TECHNIQUE: Imaging protocol: Computed tomographic angiography of the chest with contrast. 3D rendering (Not supervised by radiologist): MIP and/or 3D reconstructed images were created by the technologist. Radiation optimization: All CT scans at this facility use at least one of these dose optimization techniques: automated exposure control; mA and/or kV adjustment per patient size (includes targeted exams where dose is matched to clinical indication); or iterative reconstruction. Contrast material: ISOVUE 370; Contrast volume: 75 ml; Contrast route: INTRAVENOUS (IV); COMPARISON: CR CHEST 2 VIEW 09/08/2017 5:49 PM FINDINGS: Pulmonary arteries: Multiple pulmonary emboli demonstrated in the segmental artery to the lingular lobe, left intralobar pulmonary artery, and small embolus in the right intralobar pulmonary artery. Aorta: There is mild atherosclerosis in the thoracic aorta. There is no aortic dissection or aneurysm. Lungs: 3 mm noncalcified fissural based nodule in the minor fissure. Several other scattered 1-2 mm noncalcified peripheral pulmonary parenchymal nodules. Findings likely postinflammatory. No follow-up suggested. Small focus of subpleural scarring in the left lower lobe. Lungs otherwise clear. Pleural spaces: Unremarkable. No pneumothorax. No pleural effusion. Heart: There is mild atherosclerotic calcification of the coronary arteries. Normal RV LV ratio. No evidence of right heart dysfunction. Mediastinal space: A small hiatal hernia is present. Lymph nodes: Multiple small mediastinal lymph nodes likely postinflammatory. Liver: There are cysts in the liver measuring up to 2.7 cm located in segment 4A of the left lobe. No complex features demonstrated. No follow-up suggested. Liver otherwise unremarkable. Bones/joints: The spine demonstrates mild degenerative changes. Soft tissues: Unremarkable. IMPRESSION: 1. Multiple pulmonary emboli as described above. 2. A small hiatal hernia is present. 3. There is no aortic dissection or aneurysm. 4. No right heart dysfunction. THIS REPORT CONTAINS FINDINGS THAT MAY BE CRITICAL TO PATIENT CARE. The findings were verbally communicated via telephone conference with LAW HYLTON at 6:29 PM EDT on 11/23/2020. The findings were acknowledged and understood. Electronically signed by: Dexter Lucero On 11/23/2020 18:30:11 PM
[2020-11-23 18:44] LABS: PLTBLUE- EDTA FREE CALC 14 K/mm3 (172-450)
[2020-11-23] MEDS ORDERED: HOME MED LIST COMPLETE! XX SCH (19:05)
[2020-11-23 19:12] LABS: RSV AMPLIFICATION NEGATIVE (NEGATIVE)
[2020-11-23 19:14] LABS: CK-MB VALUE MASS 1.3 NG/ML (<3.6); CPK CREATINE PHOSPHOKINASE 187 U/L (39-308); TROPONIN I < 0.02 NG/ML (< 0.10)
[2020-11-23 19:14] LABS: PLTBLUE- EDTA FREE MACHINE 13 10^3/uL (172-450)
--- NOTE | 2020-11-23 19:29 | ECGEPIP ---
[facility] - ED Test Date: 2020-11-23 Pat Name: BEHZAD SANTIAGO Department: Room: - Gender: Male Manager Global: LR : 1945 Requested By: LAW Rodriguez PA-C Order Number: [id number] Reading MD: Heather Daniels Measurements Intervals [place] Rate: 71 P: 39 NE: 234 QRS: 10 QRSD: 84 T: 22 QT: 416 QTc: 452 Interpretive Statements Sinus rhythm with 1st degree AV block NSTTW abnormalities irbbb No prior Electronically Signed on 11-23-2020 19:28:57 EDT by Heather Daniels
[2020-11-23] MEDS ORDERED: DEXTROSE 50% 50 ML SYRINGE IV PRN (19:30)
[2020-11-23] MEDS ORDERED: GLUCOSE 4GM CHEW TABLET PO PRN (19:30)
[2020-11-23] MEDS ORDERED: GLUCAGON INJ 1MG VIAL SC PRN (19:30)
--- NOTE | 2020-11-23 19:35 | HPEPDOC ---
General Date of Admission 11/23/20 Date of Service: Nov 23, 2020 Chief Complaint The patient is a 75-year-old male admitted with a reason for visit of R Leg Pain. 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 with focal glandular differentiation status post right robotic distal ureterectomy with reimplant in August 2020, had a ureteral stent which was removed in October 2020, patient is undergoing adjuvant chemotherapy with gemcitabine and carboplatin last cycle of chemo was on 11/14/2020, saddle pu lmonary embolism involving the main pulmonary trunk and bilateral pulmonary arteries in October 2020 started on Eliquis, COPD, diabetes, hypertension, sleep apnea, hyperlipidemia, anxiety and depression presented to the emergency room on 11/23/2020 for right leg and calf swelling for 2 to 3 days along with patchy in the right leg. He also complained of some soreness of the right leg and calf about 2 /10 in intensity. He also noted appearance of patchy on the left leg today without any swelling. Patient also has been complaining of increasing shortness of breath for the past 4 to 6 weeks which has been worse in the past 2 to 3 days. Evaluation in the ED showed a platelet count of 17, hemoglobin of 7.8. He had an ultrasound of the right leg done which showed nonocclusive thrombus in the common femoral vein and popliteal vein. He also had a CT angio of the chest showed bilateral pulmonary embolism. Multiple pulmonary emboli in the segmental artery to the lingular lobe, left intralobar pulmonary artery and a small embolus in the light intralobar pulmonary artery. No embolus in the main pulmonary trunk or the main pulmonary arteries Home Medications Scheduled Apixaban (Eliquis) 5 Mg Tablet, 5 MG PO BID, (Reported) Bupropion Hcl (Bupropion Xl) 150 Mg Tab.er.24h, 150 MG PO DAILY, (Reported) Cetirizine HCl (Cetirizine HCl) 10 Mg Tablet, 10 MG PO DAILY, (Reported) Cholecalciferol (Vitamin D3) (Vitamin D3) 1,000 Unit Tablet, 2,000 UNITS PO DAILY, (Reported) Escitalopram Oxalate (Lexapro) 10 Mg Tablet, 10 MG PO DAILY, (Reported) Ferrous Gluconate (Ferrous Gluconate) 324 Mg Tablet, 324 MG PO DAILY, (Reported) Icosapent Ethyl (Vascepa) 1 Gm Capsule, 2 GM PO BID, (Reported) Lisinopril (Lisinopril) 30 Mg Tablet, 30 MG PO DAILY, (Reported) Metformin HCl (Metformin HCl) 1,000 Mg Tablet, 500 MG PO BID, (Reported) Montelukast Sodium (Montelukast Sodium) 10 Mg Tablet, 10 MG PO DAILY, (Reported) Rosuvastatin Calcium (Rosuvastatin Calcium) 20 Mg Tablet, 20 MG PO QHS, (Reported) Sitagliptin Phosphate (Januvia) 25 Mg Tablet, 25 MG PO BID, (Reported) Allergies Coded Allergies: No Known Allergies (Unverified , 11/23/20) Past Medical History Medical History URETERAL CANCER IN JULY 2020 s/p resection of ureter with reimplantation and chemo therapy, last chemo on 11/14/20 Pulmonary embolism saddle embolus in October 2020 on eliquis CKD stage 3 baseline 1.4 to 1.6 SLEEP APNEA = CPAP DEPRESSION/ANXIETY OSTEO ARTHRITIS 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 ALLERGIC RHINITIS HLP HTN DM TYPE II EMPHYSEMA NECK/SHOULDER/ LOW Back PAIN Surgical History SINUS SURGERY 1988, 2011 VASECTOMY 1985 BUTTON-TURP VAPORIZATION 06/2012 LEFT TOTAL KNEE REPLACEMENT 11/2018 RIGHT TOTAL KNEE REPLACEMENT 02/2019 LOOP RECORDER IMPLANTED 09/2018 cystoscopy and ureteroscopy Right ureteral CANCER REMOVED 08/2020 Chemo-PORT IMPLANT 09/2020 Family History FATHER: RENAL CARINOMA, DM, HTN, PACEMAKER, MOTHER: PACEMAKER, HTN, ESSENTIAL TREMOR, RESTRICTIVE AIRWAY DISEASE, COLON CANCER, HYPERTENSION SIBLINGS: DM, HTN, HYPERCHOLESTEROL, HEART DISEASE, SON and DAUGHTER: OBESITY S/P GASTRIC BYPASS SURGERY Social History * Smoker: former Smoker (quit in 2000) Alcohol: Denies Drugs: denies A-FIB/CHADSVASC A-FIB History Current/History of A-Fib/PAF?: No Review of Systems Constitutional: Denies: Chills, Fever, Night Sweats Eyes: Denies: Pain, Vision change ENT: Denies: Head Aches, Ear Pain, Dysphagia Skin: Denies: Rash, Lesions, Breakdown Pulmonary: Reports: Dyspnea; Denies: Cough, Pleuritic Chest Pain Cardiovascular: Denies: Chest Pain, Palpitations, Orthopnea, Paroxysmal Noc. Dyspnea, Lt Headedness Gastrointestinal: Reports: Diarrhea; Denies: Nausea, Vomiting, Abdominal Pain Genitourinary: Denies: Dysuria, Frequency, Incontinence Hematologic: Reports: Petecchia, Purpura Musculoskeletal: Reports: Neck Pain, Back Pain, Shoulder Pain Psych: Reports: Anxiety, Depression Physical Examination General Exam: Positive: Alert, Cooperative, No Acute Distress Eye Exam: Positive: PERRLA, Conjunctiva & lids normal, EOMI; Negative: Sclera icteric ENT Exam: Positive: Atraumatic, Mucous membr. moist/pink, Pharynx Normal Neck Exam: Positive: Supple; Negative: JVD, thyromegaly Chest Exam: Positive: Clear to auscultation, Normal air movement Heart Exam: Positive: Rate Normal, Regular Rhythm, Normal S1, Normal S2; Negative: Murmurs, Rubs Abdomen Exam: Positive: Normal bowel sounds, Soft; Negative: Tenderness Extremity Exam: Positive: Edema (Right leg), Normal pulses; Negative: Clubbing, Cyanosis Skin Exam: Positive: Other skin issue (Purpura in the right leg and calf and also a small amount in left leg) Neuro Exam: Positive: Normal Speech, Strength at 5/5 X4 ext, Normal Tone Psych Exam: Positive: Memory Intact, Oriented x 3 Vital Signs Vital Signs Date Time Temp Pulse Resp B/P (MAP) Pulse Ox O2 Delivery O2 Flow Rate FiO2 11/23/20 13:58 98.4 74 16 139/63 (88) 98 Room Air Laboratory Data Labs 24H Laboratory Tests 2 11/23/20 16:45: Immature Granulocyte % (Auto) 2.1, Neutrophils (%) (Auto) 80.0H, Lymphocytes (%) (Auto) 11.9L, Monocytes (%) (Auto) 5.3, Eosinophils (%) (Auto) 0.4, Basophils (%) (Auto) 0.3, Neutrophils # (Auto) 6.1, Lymphocytes # (Auto) 0.9L, Monocytes # (Auto) 0.4, Eosinophils # (Auto) 0.0, Basophils # (Auto) 0.0, Nucleated Red Blood Cells % (auto) 0.4H, Immature Platelet Fraction 3.4, Erythrocyte Sedimentation Rate 79H, Prothrombin Time 17.8H, Prothromb Time International Ratio 1.42, D-Dimer, Quantitative 2149.34H, Total Bilirubin 0.4, Direct Bi lirubin 0.2, Aspartate Amino Transf (AST/SGOT) 34, Alanine Aminotransferase (ALT/SGPT) 42, Alkaline Phosphatase 94, C-Reactive Protein, Quantitative 0.37H, Total Protein 7.0, Albumin 3.5, Albumin/Globulin Ratio 1.0, Lipase 146 11/23/20 16:49: POC Glucose (Misc Panel) 89, POC Sodium (Misc Panel) 140, POC Potassium (Misc Panel) 4.8, POC Chloride (Misc Panel) 105, POC Total CO2 (Misc Panel) 20.0L, POC Blood Urea Nitrogen (Misc Panel 23, POC Ionized Calcium (Misc Panel) 5.0, POC Creatinine (Misc Panel) 1.5H, POC Hematocrit (Misc Panel) 23.0L CBC/BMP Laboratory Tests 11/23/20 16:45 Assessment/Plan This is a 75-year-old male with past medical history of 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 with focal glandular differentiation status post right robotic distal ureterectomy with reimplant in August 2020, had a ureteral stent which was removed in October 2020, patient is undergoing adjuvant chemotherapy with gemcitabine and carboplatin last cycle of chemo was on 11/14/2020, saddle pulmonary embolism involving the main pulmonary trunk and bilateral pulmonary arteries in October 2020 started on Eliquis, COPD, diabetes, hypertension, sleep apnea, hyperlipidemia, anxiety and depression presented to the emergency room on 11/23/2020 for right leg and calf swelling for 2 to 3 days along with patchy in the right leg. He also complained of some soreness of the right leg and calf about 2 /10 in intensity. He also noted appearance of patchy on the left leg today without any swelling. Patient also has been complaining of increasing shortness of breath for the past 4 to 6 weeks which has been worse in the past 2 to 3 days. Evaluation in the ED showed a platelet count of 17, hemoglobin of 7.8. He had an ultrasound of the right leg done which showed nonocclusive thrombus in the common femoral vein and popliteal vein. He also had a CT angio of the chest showed bilateral pulmonary embolism. Multiple pulmonary emboli in the segmental artery to the lingular lobe, left intralobar pulmonary artery and a small embolus in the light intralobar pulmonary artery. No embolus in the main pulmonary trunk or the main pulmonary arteries. Patient was admitted for DVT and pulmonary embolism in the presence of thrombocytopenia. Right DVT and pulmonary embolism The pulmonary embolism may be residual from the pulmonary embolism in October 2020. At that time patient did not have any DVT scans done for the legs. The current swelling of the right calf could be post thrombotic syndrome versus new nonocclusive DVT. The purpura seen is due to the thrombocytopenia Patient is on Eliquis. We will continue Eliquis Consulted with Dr. Stock from vascular Would benefit from IVC filter placement. Plan for IVC filter placement on 11/24/2020. Once platelet count is above 100K would consider changing Eliquis to Lovenox. Patient should discuss this with his oncologist her primary care provider. Anemia and thrombocytopenia This is likely chemotherapy related Last cycle of chemotherapy was on 11/14/2020 Will monitor for now History of right ureteral cancer Status post surgery and adjuvant chemotherapy Follow-up with urology and oncology as an outpatient Diabetes Carb consistent diet Continue Januvia Hold Metformin Will give lispro as per sliding scale CKD stage III Creatinine at baseline we will continue to monitor Patient had CT angio today so will watch out for contrast nephropathy We will hold Metformin and lisinopril. Hypertension Will hold lisinopril as has CKD and just received contrast. Will give amlodipine as if required for blood pressure control. Hyperlipidemia Continue statin Anxiety and depression We will continue Lexapro and bupropion. Plan / VTE VTE Prophylaxis Ordered?: Yes Emily Rendon MD Nov 23, 2020 18:15
[2020-11-23] MEDS ORDERED: PILL CUTTER 1 EACH XX PRN (19:55)
--- NOTE | 2020-11-23 20:01 | REP ---
INDICATION: redness r/o DVT COMPARISON: None. TECHNIQUE: Méndez scale and color Doppler evaluation using linear high frequency transducer. FINDINGS: Ultrasound examination of the left lower extremity deep venous structures from the common femoral vein through the calf/ankle to include the peroneal, and tibial veins demonstrates normal compressibility flow and wave patterns in response to respiration and augmentation. There is no evidence for deep venous thrombosis. 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 IMPRESSION: No evidence for deep venous thrombosis. <Electronically signed by Ziyad Barker > 11/23/201957
[2020-11-23 21:03] LABS: INR 1.42; PROTHROMBIN TIME 17.8 SECONDS (12.7-14.5)
--- NOTE | 2020-11-23 23:07 | CR.PDOC ---
General Date of Consultation: Nov 23, 2020 Consultation REASON FOR CONSULTATION/CHIEF COMPLAINT: right lower extremity DVT and concurrent PE HISTORY OF PRESENT ILLNESS: Mr Avinash Humphreys, is a 75 year old man who had a saddle embolus approximately 4 months ago in the setting of ureteral malignancy. He is now on chemotherapy and has received his last dose of chemo this week. He presents to the ED with petechiae across his bilateral calves and right leg swelling and erythema suggestive of a new DVT. He is very thrombocytopenic. He is also complaining of some shortness of breath which led him to come to the ED today. ALLERGIES: Please see below. HOME MEDICATIONS: Please see below. Physical/Exam: Awake comfortable, right leg is significantly more swollen than the left. 2+ pitting edema from foot to knee. Calf is tender on palpation but no pain at rest. Left leg has small petechiae but much less significant than the right. LABORATORY DATA: Please see below. ASSESSMENT/PLAN: 1. 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 Considered at this point a failure of anticoagulation. Plan: discussed with him that symptoms are mild and he is high risk for bleeding thus no role fo lysis. He needs a filter for manager intermediate protection Will plan for IVC filter placement tomorrow. Vital Signs/I&O Vital Signs Date Time Temp Pulse Resp B/P (MAP) Pulse Ox O2 Delivery O2 Flow Rate FiO2 11/23/20 19:30 73 138/60 (86) 96 11/23/20 13:58 98.4 16 Room Air Laboratory Data Labs 24H Laboratory Tests 2 11/23/20 16:45: Immature Granulocyte % (Auto) 2.1, Neutrophils (%) (Auto) 80.0H, Lymphocytes (%) (Auto) 11.9L, Monocytes (%) (Auto) 5.3, Eosinophils (%) (Auto) 0.4, Basophils (%) (Auto) 0.3, Neutrophils # (Auto) 6.1, Lymphocytes # (Auto) 0.9L, Monocytes # (Auto) 0.4, Eosinophils # (Auto) 0.0, Basophils # (Auto) 0.0, Nucleated Red Blood Cells % (auto) 0.4H, Immature Platelet Fraction 3.4, Erythrocyte Sed imentation Rate 79H, Prothrombin Time 17.8H, Prothromb Time International Ratio 1.42, D-Dimer, Quantitative 2149.34H, Total Bilirubin 0.4, Direct Bilirubin 0.2, Aspartate Amino Transf (AST/SGOT) 34, Alanine Aminotransferase (ALT/SGPT) 42, Alkaline Phosphatase 94, C-Reactive Protein, Quantitative 0.37H, Total Protein 7.0, Albumin 3.5, Albumin/Globulin Ratio 1.0, Lipase 146 11/23/20 16:49: POC Glucose (Misc Panel) 89, POC Sodium (Misc Panel) 140, POC Potassium (Misc Panel) 4.8, POC Chloride (Misc Panel) 105, POC Total CO2 (Misc Panel) 20.0L, POC Blood Urea Nitrogen (Misc Panel 23, POC Ionized Calcium (Misc Panel) 5.0, POC Creatinine (Misc Panel) 1.5H, POC Hematocrit (Misc Panel) 23.0L 11/23/20 18:02: Platelet Count, EDTA Free 14*L 11/23/20 18:18: Total Creatine Kinase 187, Creatine Kinase MB 1.3, Creatine Kinase MB Relative Index 0.70, Troponin I < 0.02 11/23/20 18:25: Coronavirus (COVID-19)(PCR) NEGATIVE, Influenza Type A (RT-PCR) NEGATIVE, Influenza Type B (RT-PCR) NEGATIVE, Respiratory Syncytial Virus (PCR) NEGATIVE 11/23/20 20:22: Prothrombin Time 17.8H, Prothromb Time International Ratio 1.42, Activated Partial Thromboplast Time 32.0 CBC/BMP Laboratory Tests 11/23/20 16:45 Allergies Coded Allergies: No Known Allergies (Unverified , 11/23/20) Home Medications Scheduled Apixaban (Eliquis) 5 Mg Tablet, 5 MG PO BID, (Reported) Bupropion Hcl (Bupropion Xl) 150 Mg Tab.er.24h, 150 MG PO DAILY, (Reported) Cetirizine HCl (Cetirizine HCl) 10 Mg Tablet, 10 MG PO DAILY, (Reported) Cholecalciferol (Vitamin D3) (Vitamin D3) 1,000 Unit Tablet, 2,000 UNITS PO DAILY, (Reported) Escitalopram Oxalate (Lexapro) 10 Mg Tablet, 10 MG PO DAILY, (Reported) Ferrous Gluconate (Ferrous Gluconate) 324 Mg Tablet, 324 MG PO DAILY, (Reported) Icosapent Ethyl (Vascepa) 1 Gm Capsule, 2 GM PO BID, (Reported) Lisinopril (Lisinopril) 30 Mg Tablet, 30 MG PO DAILY, (Reported) Metformin HCl (Metformin HCl) 1,000 Mg Tablet, 500 MG PO BID, (Reported) Montelukast Sodium (Montelukast Sodium) 10 Mg Tablet, 10 MG PO DAILY, (Reported) Rosuvastatin Calcium (Rosuvastatin Calcium) 20 Mg Tablet, 20 MG PO QHS, (Reported) Sitagliptin Phosphate (Januvia) 25 Mg Tablet, 25 MG PO BID, (Reported) Mitesh Stock MD Nov 23, 2020 23:07
[2020-11-23] MEDS: HumaLOG INSULIN (NovoLOG) PER UNIT SC SCH (23:58)
[2020-11-24] MEDS: SITagliptin 50 MG TAB (JANUVIA) PO SCH ×3 (00:03→20:41)
[2020-11-24] MEDS: ROSUVASTATIN 10 MG TAB (CRESTOR) PO SCH ×2 (00:04→20:40)
[2020-11-24] MEDS: APIXABAN 5 MG TAB (ELIQUIS) PO SCH ×3 (00:06→20:40)
[2020-11-24 00:52] VITALS: BP 127/58
[2020-11-24 03:43] VITALS: BP 120/59
[2020-11-24] MEDS: HumaLOG INSULIN (NovoLOG) PER UNIT SC SCH ×4 (07:30→20:41)
[2020-11-24 08:00] VITALS: BP 147/67
[2020-11-24] MEDS: buPROPion **XL** TABLET 150MG (WELLBUTRIN XL) PO SCH (08:44)
[2020-11-24] MEDS: ESCITALOPRAM OXALATE 10 MG TAB (LEXAPRO) PO SCH (08:44)
[2020-11-24] MEDS: FERROUS GLUCONATE 324 MG TAB PO SCH (08:44)
[2020-11-24 10:28] LABS: BASO % 0.1 % (0.0-1.0); EOS % 0.6 % (0.0-3.0); HEMATOCRIT 23.4 % (42.0-52.0); HEMOGLOBIN 7.6 g/dl (13.5-17.5); LYMPH # 0.8 10^3/uL (1.5-5.0); LYMPH % 10.8 % (24.0-44.0); MEAN CORPUSCULAR HEMOGLOBIN 34.1 pg (27.0-33.0); MEAN CORPUSCULAR HGB CONC 32.5 g/dl (32.0-36.5); MEAN CORPUSCULAR VOLUME 104.9 fl (80.0-96.0); MONO # 0.6 10^3/uL (0.0-0.8); MONO % 8.3 % (2.0-8.0); NEUTROPHILS # 5.5 10^3/uL (1.5-8.5); NEUTROPHILS % 78.4 % (36.0-66.0); RED BLOOD COUNT 2.23 10^6/uL (4.30-6.10)
[2020-11-24 10:32] LABS: PLATELET COUNT, AUTOMATED 17 10^3/uL (150-450)
[2020-11-24 10:52] LABS: CALCIUM LEVEL 8.3 MG/DL (8.8-10.2); CREATININE FOR GFR 1.54 MG/DL (0.70-1.30); GLOMERULAR FILTRATION RATE 47.4 (>42); POTASSIUM SERUM 4.8 MEQ/L (3.5-5.1)
[2020-11-24] MEDS ORDERED: LIDOCAINE 2% MDV 20ML VIAL As Ordered ONE (11:57)
[2020-11-24] MEDS ORDERED: LIDOCAINE 1% MDV 20ML VIAL As Ordered ONE (11:58)
[2020-11-24] MEDS ORDERED: ISOVUE-300 61% 50ML VIAL As Ordered ONE (11:59)
[2020-11-24] MEDS ORDERED: fentaNYL 100 MCG/2 ML INJECTION (J3010) As Ordered ONE (12:07)
[2020-11-24] MEDS ORDERED: MIDAZOLAM INJ 2MG/2ML VIAL (J2250 PER 1MG) As Ordered ONE (12:07)
--- NOTE | 2020-11-24 12:38 | IPNPDOC ---
Subjective Date Seen The patient was seen on 11/24/20. Subjective Chief Complaint/HPI No complaints this morning sitting up by the side of the bed. He did him desaturate during sleep last night and was put on 2 L of oxygen. He has sleep apnea and uses CPAP at home. Objective Physical Examination General Exam: Positive: Alert, Cooperative, No Acute Distress Eye Exam: Positive: PERRLA, Conjunctiva & lids normal, EOMI; Negative: Sclera icteric ENT Exam: Positive: Atraumatic, Mucous membr. moist/pink, Pharynx Normal Neck Exam: Positive: Supple; Negative: JVD, thyromegaly Chest Exam: Positive: Clear to auscultation, Normal air movement Heart Exam: Positive: Rate Normal, Regular Rhythm, Normal S1, Normal S2; Negative: Murmurs, Rubs Abdomen Exam: Positive: Normal bowel sounds, Soft; Negative: Tenderness Extremity Exam: Positive: Edema (Right leg), Normal pulses; Negative: Clubbing, Cyanosis Skin Exam: Positive: Other skin issue (Purpura in the right leg and calf and also a small amount in left leg) Neuro Exam: Positive: Normal Speech, Strength at 5/5 X4 ext, Normal Tone Psych Exam: Positive: Memory Intact, Oriented x 3 Assessment /Plan Assessment This is a 75-year-old male with past medical history of 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 wi th was invasive with focal glandular differentiation status post right robotic distal ureterectomy with reimplant in August 2020, had a ureteral stent which was removed in October 2020, patient is undergoing adjuvant chemotherapy with gemcitabine and carboplatin last cycle of chemo was on 11/14/2020, saddle pulmonary embolism involving the main pulmonary trunk and bilateral pulmonary arteries in October 2020 started on Eliquis, COPD, diabetes, hypertension, sleep apnea on CPAP, hyperlipidemia, anxiety and depression presented to the emergency room on 11/23/2020 for right leg and calf swelling for 2 to 3 days along with patchy in the right leg. He also complained of some soreness of the right leg and calf about 2 /10 in intensity. He also noted appearance of patchy on the left leg today without any swelling. Patient also has been complaining of increasing shortness of breath for the past 4 to 6 weeks which has been worse in the past 2 to 3 days. Evaluation in the ED showed a platelet count of 17, hemoglobin of 7.8. He had an ultrasound of the right leg done which showed nonocclusive thrombus in the common femoral vein and popliteal vein. He also had a CT angio of the chest showed bilateral pulmonary embolism. Multiple pulmonary emboli in the segmental artery to the lingular lobe, left intralobar pulmonary artery and a small embolus in the light intralobar pulmonary artery. No embolus in the main pulmonary trunk or the main pulmonary arteries. Patient was admitted for DVT and pulmonary embolism in the presence of thrombocytopenia. Right lower extremity DVT and pulmonary embolism The pulmonary embolism may be residual from the pulmonary embolism in October 2020. At that time patient did not have any DVT scans done for the legs. The current swelling of the right calf could be post thrombotic syndrome versus new nonocclusive DVT. The purpura seen is due to the thrombocytopenia Patient is on Eliquis. We will continue Eliquis Consulted with Dr. Stock from vascular Planned for IVC filter placement on 11/24/2020. Once platelet count is above 100K would consider changing Eliquis to Lovenox. Patient should discuss this with his oncologist her primary care provider. Anemia and thrombocytopenia This is likely chemotherapy related Last cycle of chemotherapy was on 11/14/2020 Will monitor for now History of right ureteral cancer Status post surgery and adjuvant chemotherapy Follow-up with urology and oncology as an outpatient Diabetes Carb consistent diet Continue Januvia Hold Metformin Will give lispro as per sliding scale CKD stage III Creatinine at baseline we will continue to monitor We will hold Metformin and lisinopril. Hypertension Will hold lisinopril as has CKD and just received contrast. Will give amlodipine for blood pressure control. Hyperlipidemia Continue statin Anxiety and depression We will continue Lexapro and bupropion. BHUMIKA May use own CPAP if available Plan/VTE VTE Prophylaxis Ordered?: Yes VS, I&O, 24H, Fishbone Vital Signs/I&O Vital Signs Date Time Temp Pulse Resp B/P (MAP) Pulse Ox O2 Delivery O2 Flow Rate FiO2 11/24/20 12:25 80 19 99 Nasal Cannula 2.0 11/24/20 11:39 97.7 11/24/20 08:00 147/67 (93) I&O- Last 24 Hours up to 6 AM 11/24/20 05:59 Intake Total 0 ml Output Total 675 ml Balance -675 ml Laboratory Data 24H LABS Laboratory Tests 2 11/23/20 16:45: Immature Granulocyte % (Auto) 2.1, Neutrophils (%) (Auto) 80.0H, Lymphocytes (%) (Auto) 11.9L, Monocytes (%) (Auto) 5.3, Eosinophils (%) (Auto) 0.4, Basophils (%) (Auto) 0.3, Neutrophils # (Auto) 6.1, Lymphocytes # (Auto) 0.9L, Monocytes # (Auto) 0.4, Eosinophils # (Auto) 0.0, Basophils # (Auto) 0.0, Nucleated Red Blood Cells % (auto) 0.4H, Immature Platelet Fraction 3.4, Erythrocyte Sedimentation Rate 79H, Prothrombin Time 17.8H, Prothromb Time International Ratio 1.42, D-Dimer, Quantitative 2149.34H, Total Bilirubin 0.4, Direct Bilirubin 0.2, Aspartate Amino Transf (AST/SGOT) 34, Alanine Aminotransferase (ALT/SGPT) 42, Alkaline Phosphatase 94, C-Reactive Protein, Quantitative 0.37H, Total Protein 7.0, Albumin 3.5, Albumin/Globulin Ratio 1.0, Lipase 146 11/23/20 16:49: POC Glucose (Misc Panel) 89, POC Sodium (Misc Panel) 140, POC Potassium (Misc Panel) 4.8, POC Chloride (Misc Panel) 105, POC Total CO2 (Misc Panel) 20.0L, POC Blood Urea Nitrogen (Misc Panel 23, POC Ionized Calcium (Misc Panel) 5.0, POC Creatinine (Misc Panel) 1.5H, POC Hematocrit (Misc Panel) 23.0L 11/23/20 18:02: Platelet Count, EDTA Free 14*L 11/23/20 18:18: Total Creatine Kinase 187, Creatine Kinase MB 1.3, Creatine Kinase MB Relative Index 0.70, Troponin I < 0.02 11/23/20 18:25: Coronavirus (COVID-19)(PCR) NEGATIVE, Influenza Type A (RT-PCR) NEGATIVE, Influenza Type B (RT-PCR) NEGATIVE, Respiratory Syncytial Virus (PCR) NEGATIVE 11/23/20 20:22: Prothrombin Time 17.8H, Prothromb Time International Ratio 1.42, Activated Partial Thromboplast Time 32.0 11/23/20 23:55: Bedside Glucose (Misc Panel) 114H 8/23/21 07:36: Bedside Glucose (Misc Panel) 100 11/24/20 09:57: Immature Granulocyte % (Auto) 1.8, Neutrophils (%) (Auto) 78.4H, Lymphocytes (%) (Auto) 10.8L, Monocytes (%) (Auto) 8.3H, Eosinophils (%) (Auto) 0.6, Basophils (%) (Auto) 0.1, Neutrophils # (Auto) 5.5, Lymphocytes # (Auto) 0.8L, Monocytes # (Auto) 0.6, Eosinophils # (Auto) 0.0, Basophils # (Auto) 0.0, Nucleated Red Blood Cells % (auto) 0.7H, Anion Gap 5L, Glomerular Filtration Rate 47.4, Calcium Level 8.3L 11/24/20 11:13: Bedside Glucose (Misc Panel) 109 CBC/BMP Laboratory Tests 11/23/20 16:45 11/24/20 09:57 Emily Rendon MD Nov 24, 2020 12:38
[2020-11-24 13:35] VITALS: BP 119/58
--- NOTE | 2020-11-24 13:53 | RO ---
OPERATIVE NOTE DATE OF OPERATION: 11/24/2020 TIME: Approximately 12 p.m. PREOPERATIVE DIAGNOSIS: Recurrent pulmonary embolism despite anticoagulation/failure of anticoagulation. POSTOPERATIVE DIAGNOSIS: Recurrent pulmonary embolism despite anticoagulation/failure of anticoagulation. PROCEDURE PERFORMED: Ultrasound-guided right femoral vein access, vena cavagram and iliac vein venogram, placement of a Cook selective IVC filter. SURGEON: Mitesh Stock MD SPECIAL SKILLS OFFICER: No qualified surgical territory manager was available for this procedure. ESTIMATED BLOOD LOSS: Minimal. SPECIMEN: None COMPLICATIONS: None. ANESTHESIA: Local without monitored sedation, a total of 2 mL of 1% lidocaine used. CONTRAST USED: Approximately 40 mL INDICATIONS: Mr. Avinash Roberts is a 75-year-old gentleman. He had a DVT in his right leg and a pulmonary embolism a few months ago in the setting of a urethral cancer. The cancer is now status post chemotherapy and is suspected to be cancer free. He is also post-surgical resection. He now presents with significant right leg swelling and worsening shortness of breath and was found to be recurrent PE and right leg DVT. Given the fact that he was on Eliquis and compliant, I felt this represented a failure of anticoagulation. We elected to perform a venogram with IVC filter placement for pulmonary protection. The patient agreed to move forward based on my recommendation. Risks, benefits and alternatives were explained to him and he agreed move forward. PROCEDURE IN DETAIL: The patient was taken to the interventional suite. Bilateral groins were prepped and draped in standard sterile fashion. A timeout was performed to confirm the correct side and site of the procedure. Micropuncture needle and sheath were used to first gain access into the saphenous vein and a venogram immediately taken but revealed that the feet were actually pointing caudally. As such, I withdrew the catheter and wire and repunctured the right common femoral vein under ultrasound guidance. A venogram now showed a patent common femoral vein with some degree of chronic appearing clot. There was an area of clot that was noted on the right external iliac sidewall. The common iliac appeared patent as was the IVC. I then went ahead and upsized the micropuncture sheath to the Cook sheath first over a [employer] wire which was positioned in the right atrium. A 9 Urdu dilator was first inserted followed by the Cook select IV filter system and sheath and a repeat venogram confirmed the appropriate positioning. I then inserted the Cook select filter and the tip of the filter was deployed at the base of the L3 vertebra and with the struts at the base of the L4 vertebra. This adequately placed it above the iliac confluence of the renal veins bilaterally in a nice upright position. At this point I felt no further intervention was required. I withdrew all catheters and wires, held manual pressure enough and then transferred the patient to the recovery room in stable condition. I was present and performed all critical portions of the procedure.
[2020-11-24 16:00] VITALS: BP 122/60
[2020-11-24 20:00] VITALS: BP 115/57
[2020-11-25] VITALS: BP 120/57
[2020-11-25 04:00] VITALS: BP 117/58
[2020-11-25 05:20] LABS: HEMATOCRIT 23.1 % (42.0-52.0); HEMOGLOBIN 7.4 g/dl (13.5-17.5); MEAN CORPUSCULAR HEMOGLOBIN 34.3 pg (27.0-33.0); MEAN CORPUSCULAR VOLUME 106.9 fl (80.0-96.0); RED BLOOD COUNT 2.16 10^6/uL (4.30-6.10); WHITE BLOOD COUNT 6.6 10^3/uL (4.0-10.0)
[2020-11-25 05:26] LABS: PLATELET COUNT, AUTOMATED 26 10^3/uL (150-450)
[2020-11-25 05:37] LABS: CALCIUM LEVEL 8.7 MG/DL (8.8-10.2); CREATININE FOR GFR 1.34 MG/DL (0.70-1.30); GLOMERULAR FILTRATION RATE 55.6 (>42); POTASSIUM SERUM 4.9 MEQ/L (3.5-5.1)
[2020-11-25 06:11] LABS: ATYPICAL LYMPH 1 % (0-5); LYMPHOCYTES 16 % (16-44); MONOCYTES 6 % (0-5); NEUTROPHILS 77 % (28-66)
[2020-11-25 06:12] LABS: ANISOCYTOSIS 2+; PLATELET ESTIMATE MARKED DECREASE (NORMAL); POIKILOCYTOSIS 1+; POLYCHROMASIA 1+
[2020-11-25] MEDS: HumaLOG INSULIN (NovoLOG) PER UNIT SC SCH (07:30)
[2020-11-25 08:00] VITALS: BP 163/67
[2020-11-25] MEDS: buPROPion **XL** TABLET 150MG (WELLBUTRIN XL) PO SCH (08:28)
[2020-11-25] MEDS: SITagliptin 50 MG TAB (JANUVIA) PO SCH (08:28)
[2020-11-25] MEDS: FERROUS GLUCONATE 324 MG TAB PO SCH (08:29)
[2020-11-25] MEDS: APIXABAN 5 MG TAB (ELIQUIS) PO SCH (08:29)
[2020-11-25] MEDS: ESCITALOPRAM OXALATE 10 MG TAB (LEXAPRO) PO SCH (08:29)
--- NOTE | 2020-11-25 11:48 | DS.PDOC ---
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 HOSPITAL COURSE: This is a 75-year-old male with past medical history of high- grade urothelial carcinoma of the right ureter pathology showed 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 with focal glandular differentiation status post right robotic distal ureterectomy with reimplant in August 2020, had a ureteral stent which was removed in October 2020, patient is undergoing adjuvant chemotherapy with gemcitabine and carboplatin last cycle of chemo was on 11/14/2020, saddle pulmonary embolism involving the main pulmonary trunk and bilateral pulmonary arteries in October 2020 started on Eliquis, COPD, diabetes, hypertension, sleep apnea on CPAP, hyperlipidemia, anxiety and depression presented to the emergency room on 11/23/2020 for right leg and calf swelling for 2 to 3 days along with patchy in the right leg. He also complained of some soreness of the right leg and calf about 2 /10 in intensity. He also noted appearance of patchy on the left leg today without any swelling. Patient also has been complaining of increasing shortness of breath for the past 4 to 6 weeks which has been worse in the past 2 to 3 days. Evaluation in the ED showed a platelet count of 17, hemoglobin of 7.8. He had an ultrasound of the right leg done which showed nonocclusive thrombus in the common femoral vein and popliteal vein. He also had a CT angio of the chest showed bilateral pulmonary embolism. Multiple pulmonary emboli in the segmental artery to the lingular lobe, left intralobar pulmonary artery and a small embolus in the light intralobar pulmonary artery. No embolus in the main pulmonary trunk or the main pulmonary arteries. Patient was admitted for DVT and pulmonary embolism in the presence of thrombocytopenia. Right lower extremity DVT and pulmonary embolism The pulmonary embolism may be residual from the pulmonary embolism in October 2020. At that time patient did not have any DVT scans done for the legs. The current swelling of the right calf could be post thrombotic syndrome versus new nonocclusive DVT. The purpura seen is due to the thrombocytopenia Patient is on Eliquis. We will continue Eliquis Consulted with Dr. Stock from vascular Planned for IVC filter placement on 11/24/2020. Once platelet count is above 100K would consider changing Eliquis to Lovenox. Patient should discuss this with his oncologist her primary care provider. Anemia and thrombocytopenia This is likely chemotherapy related Last cycle of chemotherapy was on 11/14/2020 Will monitor for now History of right ureteral cancer Status post surgery and adjuvant chemotherapy Follow-up with urology and oncology as an outpatient Diabetes Carb consistent diet Continue Januvia, Metformin CKD stage III Creatinine at baseline we will continue to monitor Hypertension Continue home meds of lisinopril and amlodipine Hyperlipidemia Continue statin Anxiety and depression We will continue Lexapro and bupropion. BHUMIKA On CPAP DISCHARGE MEDICATIONS: Please see below. ALLERGIES: Please see below. PHYSICAL EXAMINATION ON DISCHARGE: VITAL SIGNS: Please see below. General Exam: Positive: Alert, Cooperative, No Acute Distress Eye Exam: Positive: PERRLA, Conjunctiva & lids normal, EOMI; Negative: Sclera icteric ENT Exam: Positive: Atraumatic, Mucous membr. moist/pink, Pharynx Normal Neck Exam: Positive: Supple; Negative: JVD, thyromegaly Chest Exam: Positive: Clear to auscultation, Normal air movement Heart Exam: Positive: Rate Normal, Regular Rhythm, Normal S1, Normal S2; Negative: Murmurs, Rubs Abdomen Exam: Positive: Normal bowel sounds, Soft; Negative: Tenderness Extremity Exam: Positive: Edema (Right leg), Normal pulses; Negative: Clubbing, Cyanosis Skin Exam: Positive: Other skin issue (Purpura in the right leg and calf and also a small amount in left leg) Neuro Exam: Positive: Normal Speech, Strength at 5/5 X4 ext, Normal Tone Psych Exam: Positive: Memory Intact, Oriented x 3 LABORATORY DATA: Please see below. ACTIVITY: [As tolerated]. DIET: Carb consistent DISCHARGE PLAN: Home DISPOSITION: 01 Home, Self-Care. DISCHARGE INSTRUCTIONS: Follow-up with PMD in 1 week, follow-up with oncology in 2 to 3 weeks Continue [place] wrapping of the right lower extremity change every other day Try to keep leg elevated DISCHARGE CONDITION: [Stable]. TIME SPENT ON DISCHARGE: 35 minutes. Vital Signs/I&Os Vital Signs Date Time Temp Pulse Resp B/P (MAP) Pulse Ox O2 Delivery O2 Flow Rate FiO2 11/25/20 08:00 98.5 76 18 163/67 (99) 99 Nasal Cannula 2.0 I&O- Last 24 Hours up to 6 AM 11/25/20 06:00 Intake Total 400 ml Output Total 940 ml Balance -540 ml Laboratory Data Labs 24H Laboratory Tests 2 11/24/20 16:30: Bedside Glucose (Misc Panel) 94 11/24/20 20:37: Bedside Glucose (Misc Panel) 140H 11/25/20 04:50: 11/25/20 04:52: Neutrophils (%) (Auto) , Nucleated Red Blood Cells % (auto) 0.9H, Neutrophils 77H, Lymphocytes (Manual) 16, Monocytes (Manual) 6H, Atypical Lymphocytes 1, Polychromasia 1+, Poikilocytosis 1+, Anisocytosis 2+, Macrocytosis 2+, Platelet Estimate MARKED DECREASE, Immature Platelet Fraction 6.0, Anion Gap 2L, Glomerular Filtration Rate 55.6, Calcium Level 8.7L CBC/BMP Laboratory Tests 11/25/20 04:52 FSBS Laboratory Tests Test 11/24/20 16:30 11/24/20 20:37 Range/Units Bedside Glucose (Misc Panel) 94 140 83-110 MG/DL Discharge Medications Scheduled Apixaban (Eliquis) 5 Mg Tablet, 5 MG PO BID, (Reported) Bupropion Hcl (Bupropion Xl) 150 Mg Tab.er.24h, 150 MG PO DAILY, (Reported) Cetirizine HCl (Cetirizine HCl) 10 Mg Tablet, 10 MG PO DAILY, (Reported) Cholecalciferol (Vitamin D3) (Vitamin D3) 1,000 Unit Tablet, 2,000 UNITS PO DAILY, (Reported) Escitalopram Oxalate (Lexapro) 10 Mg Tablet, 10 MG PO DAILY, (Reported) Ferrous Gluconate (Ferrous Gluconate) 324 Mg Tablet, 324 MG PO DAILY, (Reported) Icosapent Ethyl (Vascepa) 1 Gm Capsule, 2 GM PO BID, (Reported) Lisinopril (Lisinopril) 30 Mg Tablet, 30 MG PO DAILY, (Reported) Metformin HCl (Metformin HCl) 1,000 Mg Tablet, 500 MG PO BID, (Reported) Montelukast Sodium (Montelukast Sodium) 10 Mg Tablet, 10 MG PO DAILY, (Reported) Rosuvastatin Calcium (Rosuvastatin Calcium) 20 Mg Tablet, 20 MG PO QHS, (Reported) Sitagliptin Phosphate (Januvia) 25 Mg Tablet, 25 MG PO BID, (Reported) Allergies Coded Allergies: No Known Allergies (Unverified , 11/23/20) Emily Rendon MD Nov 25, 2020 11:48
[2020-11-25 15:25] LABS: HEMOGLOBIN A1c 6.4 %
== END 2020-11-25 11:22 | disposition home or self-care (01) | DRG 299 ==
LOC: M ED 13:56 → M ED INP 19:03 → ENRESERV 22:25 → M PCU 11-24 00:48
PROVIDERS: ADMIT Internal Medicine Nephrology; ATTEND Internal Medicine Nephrology
PROC: 06H03DZ Insertion of Intraluminal Device into Inferior Vena Cava, Percutaneous Approach (ICD-10-PCS; principal; 2020-11-24 12:00)
DX: I82.411 Acute embolism and thrombosis of right femoral vein (principal); I26.99 Other pulmonary embolism without acute cor pulmonale; C66.1 Malignant neoplasm of right ureter; I82.431 Acute embolism and thrombosis of right popliteal vein; J44.9 Chronic obstructive pulmonary disease, unspecified; E11.22 Type 2 diabetes mellitus with diabetic chronic kidney disease; I12.9 Hypertensive chronic kidney disease with stage 1 through stage 4 chronic kidney disease, or unspecified chronic kidney disease; I87.091 Postthrombotic syndrome with other complications of right lower extremity; G47.30 Sleep apnea, unspecified; E78.5 Hyperlipidemia, unspecified; F41.9 Anxiety disorder, unspecified; F32.9 Major depressive disorder, single episode, unspecified; Z79.01 Long term (current) use of anticoagulants; Z79.84 Long term (current) use of oral hypoglycemic drugs; Z79.899 Other long term (current) drug therapy; N18.30 Chronic kidney disease, stage 3 unspecified; Z85.828 Personal history of other malignant neoplasm of skin; N40.1 Benign prostatic hyperplasia with lower urinary tract symptoms; J30.9 Allergic rhinitis, unspecified; Z96.653 Presence of artificial knee joint, bilateral; Z95.828 Presence of other vascular implants and grafts; D69.6 Thrombocytopenia, unspecified; D64.81 Anemia due to antineoplastic chemotherapy; Z20.822 Contact with and (suspected) exposure to COVID-19

== ENCOUNTER → 2021-01-08 | Outpatient (REF) | payer MEDICARE, OTHER ==
[~2021-01-08] MED LIST changes: +BUPR150T12 PO; +CETI-24 PO; +D31000TA2 PO; +ELIQ5TAB PO; +FERR32TA PO; +JANU25TA PO; +LISI30TA4 PO; +LISI40TA4 PO; +METF10004 PO; +MONT10TA10 PO; +ROSU20TA5 PO; +VASC1CAP2 PO
== END ==
LOC: M LAB REF 17:11
PROVIDERS: ATTEND Internal Medicine Nephrology
DX: N18.31 Chronic kidney disease, stage 3a (principal)

== ENCOUNTER → 2021-01-21 | Outpatient (CLI) | payer MEDICARE, OTHER ==
--- NOTE | 2021-01-21 15:19 | REP ---
INDICATION: ACUTE KIDNEY FAILURE, MALIGNANT NEOPLASM RT URETER. COMPARISON: 04/10/2019. TECHNIQUE: Real-time sonographic evaluation of the kidneys is performed. FINDINGS: Renal cortical echogenicity pattern is normal bilaterally and contours are smooth. There is no evidence of hydronephrosis, cyst, mass, or calculus in either kidney. There is a small dromedary hump of the lower left kidney unchanged since prior study. The right kidney measures 11.2 x 5.7 x 4.3 cm. Left renal dimensions are 10.9 x 5.2 x 5.0 cm. The urinary bladder is grossly unremarkable. It is not optimally distended. Several cystic structures are incidentally noted in the liver. IMPRESSION: Negative renal ultrasound. <Electronically signed by Kris Méndez > 01/21/21 1103
== END ==
LOC: M RAD 13:38
PROVIDERS: ATTEND Nurse Practitioner Family
DX: C66.1 Malignant neoplasm of right ureter (principal); N17.9 Acute kidney failure, unspecified

== ENCOUNTER → 2021-03-16 | Outpatient (CLI) | payer MEDICARE, OTHER ==
[~2021-03-16] MED LIST changes: +LISI20TA33; -MONT10TA10 PO; +MONT10TA97 PO
== END ==
LOC: M LABSMTC 11:36
PROVIDERS: ATTEND Anesthesiology
DX: Z01.818 Encounter for other preprocedural examination (principal); Z11.52 Encounter for screening for COVID-19

== ENCOUNTER 2021-03-20 07:27 | Day surgery (SDC) | payer MEDICARE, OTHER ==
[~2021-03-20] VITALS: Ht 185.4 cm; Wt 120.7 kg
[~2021-03-20 07:27] MED LIST changes: +LIDOCAINE 2% 100MG/5ML SDV (FOR ANES.) As Ordered ONE; +NS 1,000 ML IV ONE; +propofoL 200 MG/20 ML VIAL As Ordered ONE
[2021-03-20 09:40] VITALS: BP 129/62
== END 2021-03-20 09:50 | disposition home or self-care (01) ==
LOC: M OPP 07:27
PROVIDERS: ATTEND Internal Medicine Gastroenterology
DX: Z12.11 Encounter for screening for malignant neoplasm of colon (principal); Z80.0 Family history of malignant neoplasm of digestive organs; Z86.010 Personal history of colon polyps; K57.30 Diverticulosis of large intestine without perforation or abscess without bleeding; K64.8 Other hemorrhoids; Z79.84 Long term (current) use of oral hypoglycemic drugs; Z79.899 Other long term (current) drug therapy; Z87.891 Personal history of nicotine dependence; Z80.51 Family history of malignant neoplasm of kidney; Z84.81 Family history of carrier of genetic disease; Z85.54 Personal history of malignant neoplasm of ureter; Z86.718 Personal history of other venous thrombosis and embolism; Z95.818 Presence of other cardiac implants and grafts

== ENCOUNTER → 2021-05-06 | Outpatient (REF) | payer MEDICARE, OTHER ==
[~2021-05-06] MED LIST changes: -LIDOCAINE 2% 100MG/5ML SDV (FOR ANES.) As Ordered ONE; -NS 1,000 ML IV ONE; -propofoL 200 MG/20 ML VIAL As Ordered ONE
== END ==
LOC: M LAB REF 17:12
PROVIDERS: ATTEND Nurse Practitioner Family
DX: E83.42 Hypomagnesemia (principal)

== ENCOUNTER 2023-04-25 15:30 | Emergency (ER) | payer OTHER ==
[~2023-04-25] VITALS: Ht 185.4 cm; Wt 109.1 kg
[~2023-04-25 15:30] MED LIST changes: +ALBU2.5V10 INH; -ALBU83IN INH; -D31000TA2 PO; +MONT-5 PO; -ROSU20TA5 PO; +ROSU20TA61 PO; -SING10TA32 PO; +VITA100093 PO
[2023-04-25] MEDS ORDERED: IBUPROFEN 600MG TAB PO ONE (18:00)
[2023-04-25 18:04] LABS: BASO # 0.1 10^3/uL (0.0-0.2); BASO % 0.3 % (0.0-1.0); EOS # 0.2 10^3/uL (0.0-0.5); EOS % 1.4 % (0.0-3.0); LYMPH # 0.2 10^3/uL (1.5-5.0); LYMPH % 1.4 % (24.0-44.0); MEAN CORPUSCULAR HEMOGLOBIN 28.4 pg (27.0-33.0); MEAN CORPUSCULAR VOLUME 88.8 fl (80.0-96.0); MONO # 0.8 10^3/uL (0.0-0.8); NEUTROPHILS # 13.9 10^3/uL (1.5-8.5); NEUTROPHILS % 90.1 % (36.0-66.0); PLATELET COUNT, AUTOMATED 183 10^3/uL (150-450); RED BLOOD COUNT 2.32 10^6/uL (4.30-6.10); WHITE BLOOD COUNT 15.5 10^3/uL (4.0-10.0)
[2023-04-25] MEDS ORDERED: NS 1,000 ML IV ONE (18:05)
[2023-04-25 18:16] LABS: HEMATOCRIT 20.6 % (42.0-52.0); HEMOGLOBIN 6.6 g/dl (13.5-17.5)
[2023-04-25] MEDS ORDERED: CEFEPIME HCL 2 GM in D5W MINI-BAG PLUS 50 ML IV ONE (18:20)
[2023-04-25] MEDS ORDERED: NS 3,270 ML in IV 1 EA IV ONE (18:20)
[2023-04-25 18:34] LABS: INR 1.38; PROTHROMBIN TIME 16.5 SECONDS (12.5-14.5)
[2023-04-25 19:05] LABS: PARTIAL THROMBOPLASTIN TIME 164.5 SECONDS (24.8-34.2)
[2023-04-25 19:18] LABS: MEAN CORPUSCULAR HEMOGLOBIN 28.7 pg (27.0-33.0); MEAN CORPUSCULAR HGB CONC 32.3 g/dl (32.0-36.5); MEAN CORPUSCULAR VOLUME 88.9 fl (80.0-96.0); PLATELET COUNT, AUTOMATED 163 10^3/uL (150-450); RED BLOOD COUNT 2.16 10^6/uL (4.30-6.10)
[2023-04-25 19:23] LABS: HEMOGLOBIN 6.2 g/dl (13.5-17.5)
[2023-04-25 19:24] LABS: HEMATOCRIT 19.2 % (42.0-52.0)
[2023-04-25 19:42] LABS: CK-MB VALUE MASS < 1.0 NG/ML (<3.6)
[2023-04-25 19:43] LABS: CPK CREATINE PHOSPHOKINASE 25 U/L (46-171)
[2023-04-25 19:44] LABS: ALBUMIN 1.5 G/DL (3.2-5.2); ALKALINE PHOSPHATASE 124 U/L (46-116); ALT/SGPT 18 U/L (7.0-40); AST/SGOT 15 U/L (<34); BILIRUBIN,DIRECT 0.3 MG/DL (<0.4); BILIRUBIN,TOTAL 0.4 MG/DL (0.3-1.2); BLOOD UREA NITROGEN 27 MG/DL (9-23); CARBON DIOXIDE LEVEL 24 MMOL/L (20-31); CHLORIDE LEVEL 103 MMOL/L (98-107); CREATININE FOR GFR 2.03 MG/DL (0.70-1.30); GLOMERULAR FILTRATION RATE 34.3 (>42); GLUCOSE, FASTING 107 MG/DL (74-106); SODIUM LEVEL 135 MMOL/L (136-145); TOTAL PROTEIN 5.2 G/DL (5.7-8.2)
[2023-04-25 20:22] LABS: AMORPHOUS SEDIMENT SMALL (NEGATIVE); APPEARANCE, URINE CLOUDY (CLEAR); BACTERIA, URINE AUTO 3+ (NEGATIVE); BILIRUBIN, URINE AUTO NEGATIVE (NEGATIVE); BLOOD, URINE BLOOD 2+ (NEGATIVE); COLOR, URINE YELLOW (YELLOW); GLUCOSE, URINE (UA) AUTO NEGATIVE (NEGATIVE); KETONE, URINE AUTO NEGATIVE (NEGATIVE); LEUKOCYTE ESTERASE, URINE AUTO 2+ (NEGATIVE); MUCUS, URINE SMALL (NEGATIVE); NITRITE, URINE AUTO NEGATIVE (NEGATIVE); PROTEIN, URINE AUTO 2+ mg/dL (NEGATIVE); RBC, URINE AUTO 7 /HPF (0-3); SQUAMOUS EPITHELIAL CELL UR AU 0 /HPF (0-6); UROBILINOGEN, URINE AUTO 0.2 mg/dL (0.0-2.0); WBC, URINE AUTO 70 /HPF (0-3)
[2023-04-25 21:18] VITALS: BP 118/58; TEMP 96.8; O2SAT 97
[2023-04-25 21:33] VITALS: BP 147/56; TEMP 97; O2SAT 97
[2023-04-25] MEDS ORDERED: ONDA-83 PO (21:59)
[2023-04-25] MEDS ORDERED: ALBU8.5H INH (21:59)
[2023-04-25] MEDS ORDERED: SYMB80INH INH (21:59)
[2023-04-25] MEDS ORDERED: FLUTISP NARES (21:59)
[2023-04-25] MEDS ORDERED: MAGN400T2 PO (22:06)
[2023-04-25] MEDS ORDERED: ACET-907 PO (22:06)
[2023-04-25] MEDS ORDERED: VITA100093 PO (22:06)
[2023-04-25] MEDS ORDERED: LEVO25TA5 PO (22:06)
[2023-04-25] MEDS ORDERED: HOME MED LIST COMPLETE! XX SCH (22:10)
[2023-04-25 23:15] VITALS: BP 150/65; TEMP 96.9; O2SAT 96
[2023-04-26] MEDS ORDERED: SODIUM CHLORIDE 0.9% INJ 10 ML SYR IV SCH (09:00)
== END 2023-04-25 23:40 | disposition short-term general hospital (02) ==
LOC: M ED 15:30 → EDBD 15:30 → CANBEDREQ 21:52 → M ED 23:40
DX: N17.9 Acute kidney failure, unspecified (principal); D64.9 Anemia, unspecified; R53.1 Weakness; E11.9 Type 2 diabetes mellitus without complications; I10 Essential (primary) hypertension; J44.9 Chronic obstructive pulmonary disease, unspecified; Z86.711 Personal history of pulmonary embolism; Z87.891 Personal history of nicotine dependence; Z79.84 Long term (current) use of oral hypoglycemic drugs; Z79.899 Other long term (current) drug therapy
CPT/HCPCS: 36430; 71045; 80048; 80076; 81001; 82550; 82553; 83605; 84484; 85025; 85027; 85610; 85730; 86850; 86900; 86901; 86920; 87040; 87077; 87086; 87186; 87486; 87581; 87633; 87798; 93005; 93041; 94760; 96365; 99285; J0692; P9016

== ENCOUNTER 2023-09-11 15:37 | Inpatient (IN) | payer OTHER ==
[~2023-09-11] VITALS: Ht 170.2 cm; Wt 109.0 kg
[~2023-09-11 15:37] MED LIST changes: +ACET-907 PO; +ALBU8.5H INH; +FLUTISP NARES; +LEVO25TA5 PO; +MAGN400T2 PO; +METO200T15 PO; -METO200T28 PO; +ONDA-83 PO; +SYMB80INH INH
[2023-09-11] MEDS ORDERED: SODIUM CHLORIDE 0.9% INJ 10 ML SYR IV PRN (16:20)
[2023-09-11 16:56] LABS: BASO # 0.1 10^3/uL (0.0-0.2); BASO % 0.3 % (0.0-1.0); EOS # 0.1 10^3/uL (0.0-0.5); EOS % 0.5 % (0.0-3.0); HEMATOCRIT 24.8 % (42.0-52.0); HEMOGLOBIN 7.8 g/dl (13.5-17.5); LYMPH # 0.4 10^3/uL (1.5-5.0); LYMPH % 1.5 % (24.0-44.0); MEAN CORPUSCULAR HGB CONC 31.5 g/dl (32.0-36.5); MEAN CORPUSCULAR VOLUME 101.6 fl (80.0-96.0); MONO # 0.9 10^3/uL (0.0-0.8); MONO % 3.7 % (2.0-8.0); NEUTROPHILS # 22.6 10^3/uL (1.5-8.5); NEUTROPHILS % 92.2 % (36.0-66.0); PLATELET COUNT, AUTOMATED 306 10^3/uL (150-450); RED BLOOD COUNT 2.44 10^6/uL (4.30-6.10); WHITE BLOOD COUNT 24.5 10^3/uL (4.0-10.0)
[2023-09-11 17:05] LABS: APPEARANCE, URINE CLOUDY (CLEAR); BACTERIA, URINE AUTO 1+ (NEGATIVE); BILIRUBIN, URINE AUTO NEGATIVE (NEGATIVE); BLOOD, URINE BLOOD NEGATIVE (NEGATIVE); COLOR, URINE RED (YELLOW); GLUCOSE, URINE (UA) AUTO NEGATIVE (NEGATIVE); KETONE, URINE AUTO NEGATIVE (NEGATIVE); LEUKOCYTE ESTERASE, URINE AUTO TRACE (NEGATIVE); MUCUS, URINE SMALL (NEGATIVE); NITRITE, URINE AUTO NEGATIVE (NEGATIVE); PROTEIN, URINE AUTO 2+ mg/dL (NEGATIVE); RBC, URINE AUTO 6 /HPF (0-3); SPECIFIC GRAVITY URINE AUTO 1.012 (1.002-1.035); SQUAMOUS EPITHELIAL CELL UR AU 2 /HPF (0-6); TRIPLE PHOSPHATE CRYSTALS SMALL; UROBILINOGEN, URINE AUTO 0.2 mg/dL (0.0-2.0); WBC, URINE AUTO 19 /HPF (0-3)
[2023-09-11] MEDS: CEFEPIME HCL 2 GM in D5W MINI-BAG PLUS 50 ML IV ONE (17:18)
[2023-09-11] MEDS: NS 1,000 ML IV SCH (17:21)
[2023-09-11 17:41] LABS: THYROID STIMULATING HORMONE 1.282 uIU/ML (0.55-4.78)
[2023-09-11 17:47] LABS: CK-MB VALUE MASS < 1.0 NG/ML (<3.6); LIPASE 22 U/L (12-53)
[2023-09-11 17:49] LABS: ALBUMIN 2.2 G/DL (3.2-5.2); ALKALINE PHOSPHATASE 120 U/L (46-116); ALT/SGPT 299 U/L (7.0-40); AST/SGOT 222 U/L (<34); BILIRUBIN,DIRECT 0.3 MG/DL (<0.4); BILIRUBIN,TOTAL 0.5 MG/DL (0.3-1.2); BLOOD UREA NITROGEN 39 MG/DL (9-23); CARBON DIOXIDE LEVEL 20 MMOL/L (20-31); CHLORIDE LEVEL 99 MMOL/L (98-107); CPK CREATINE PHOSPHOKINASE 41 U/L (46-171); CREATININE FOR GFR 1.58 MG/DL (0.70-1.30); GLOMERULAR FILTRATION RATE 45.6 (>42); GLUCOSE, FASTING 204 MG/DL (74-106); MB/CK RELATIVE INDEX 2.43 (< OR =4); POTASSIUM SERUM 5.1 MMOL/L (3.5-5.1); SODIUM LEVEL 129 MMOL/L (136-145); TOTAL PROTEIN 6.7 G/DL (5.7-8.2)
[2023-09-11 17:51] LABS: FREE T4 0.85 NG/DL (0.89-1.76)
[2023-09-11 17:58] LABS: PARTIAL THROMBOPLASTIN TIME 163.7 SECONDS (24.8-34.2)
[2023-09-11 17:59] LABS: PROTHROMBIN TIME 14.3 SECONDS (12.5-14.5)
[2023-09-11 18:00] LABS: INR 1.14
[2023-09-11] MEDS ORDERED: ISOVUE-370 76% 100ML VIAL As Ordered ONE (18:02)
[2023-09-11 18:48] LABS: INR 1.13; PARTIAL THROMBOPLASTIN TIME 29.8 SECONDS (24.8-34.2); PROTHROMBIN TIME 14.2 SECONDS (12.5-14.5)
[2023-09-11 18:53] VITALS: BP 122/58; TEMP 99.7; O2SAT 93
[2023-09-11 19:09] VITALS: BP 119/56; TEMP 99.1; O2SAT 94
[2023-09-11] MEDS ORDERED: ALBUTEROL SULFATE 2.5MG/0.5ML INH NEB SOLN NEB PRN (19:30)
[2023-09-11] MEDS ORDERED: MAALOX 30 ML SUSP *UDC PO PRN (19:30)
[2023-09-11] MEDS ORDERED: GLUCAGON INJ 1MG VIAL SC PRN (19:30)
[2023-09-11] MEDS ORDERED: GLUCOSE 4 GM CHEW PO PRN (19:30)
[2023-09-11] MEDS ORDERED: DEXTROSE 50% 50ML SYRINGE IV PRN (19:30)
[2023-09-11] MEDS: NS 1,983 ML in IV 1 EA IV STA (21:03)
[2023-09-11 21:20] VITALS: O2SAT 93
[2023-09-11 22:20] VITALS: BP 136/68; TEMP 97.4; O2SAT 92
[2023-09-11] MEDS ORDERED: LISI2.5T9 PO (22:22)
[2023-09-11] MEDS ORDERED: LEVO50TA5 PO (22:22)
[2023-09-11] MEDS ORDERED: ACET325C5 PO (22:22)
[2023-09-11] MEDS ORDERED: METF-839 PO (22:22)
[2023-09-11] MEDS: IPRATROPIUM 0.5MG/ALBUTEROL 2.5MG INH SOL UD 3ML (DUONEB) NEB SCH (22:25)
[2023-09-11] MEDS ORDERED: GABA-282 PO (22:35)
[2023-09-11] MEDS ORDERED: NARC1SPR NARES (22:35)
[2023-09-11] MEDS ORDERED: MELA10CA6 PO (22:35)
[2023-09-11] MEDS ORDERED: FOLI1TAB11 PO (22:35)
[2023-09-11] MEDS ORDERED: CYAN-1 PO (22:35)
[2023-09-11] MEDS ORDERED: MOM30SS PO (22:35)
[2023-09-11] MEDS ORDERED: [UNRECOGNIZED DRUG - OTHER] PO (22:35)
[2023-09-11] MEDS ORDERED: MORP15TA2 PO (22:35)
[2023-09-11] MEDS ORDERED: HOME MED LIST COMPLETE! XX SCH (22:40)
[2023-09-11] MEDS: DOCUSATE SODIUM 100MG CAPSULE PO SCH (23:12)
[2023-09-11] MEDS: INSULIN LISPRO (NovoLOG) PER UNIT SC SCH (23:19)
[2023-09-12] MEDS: ESCITALOPRAM OXALATE 10 MG TAB (LEXAPRO) PO SCH (00:17)
[2023-09-12] MEDS: NS 1,000 ML IV SCH (00:17)
[2023-09-12] MEDS: GABAPENTIN 300 MG CAP PO SCH (00:17)
[2023-09-12] MEDS: MONTELUKAST 10 MG TAB PO SCH (00:17)
[2023-09-12] MEDS: NS 500 ML IV ONE (00:18)
[2023-09-12] MEDS: CETIRIZINE (ZyrTEC) 10 MG TAB PO SCH (00:18)
[2023-09-12] MEDS: CEFEPIME HCL 2 GM in D5W 50 ML IV SCH (03:56)
[2023-09-12] MEDS: LEVOTHYROXINE 50MCG TABLET (0.05MG) PO SCH (05:39)
[2023-09-12 06:39] VITALS: BP 110/56; TEMP 98.6; O2SAT 91
[2023-09-12 07:07] LABS: HEMATOCRIT 23.1 % (42.0-52.0); HEMOGLOBIN 7.4 g/dl (13.5-17.5); MEAN CORPUSCULAR HEMOGLOBIN 32.2 pg (27.0-33.0); MEAN CORPUSCULAR VOLUME 100.4 fl (80.0-96.0); PLATELET COUNT, AUTOMATED 244 10^3/uL (150-450); WHITE BLOOD COUNT 18.1 10^3/uL (4.0-10.0)
[2023-09-12] MEDS: SODIUM CHLORIDE 0.9% INJ 10 ML SYR IV SCH (07:33)
[2023-09-12 07:38] LABS: PROCALCITONIN 1.5 ng/ml
[2023-09-12 07:44] LABS: ALBUMIN 1.9 G/DL (3.2-5.2); BILIRUBIN,TOTAL 0.4 MG/DL (0.3-1.2); CALCIUM LEVEL 9.3 MG/DL (8.3-10.6); CREATININE FOR GFR 1.53 MG/DL (0.70-1.30); GLOMERULAR FILTRATION RATE 47.3 (>42); MAGNESIUM LEVEL 2.1 MG/DL (1.8-2.4); POTASSIUM SERUM 4.7 MMOL/L (3.5-5.1); TOTAL PROTEIN 5.3 G/DL (5.7-8.2)
[2023-09-12] MEDS: FOLIC ACID 1MG TAB PO SCH (09:27)
[2023-09-12] MEDS: MAGNESIUM OXIDE 400MG TAB (MAG-OX) PO SCH (09:27)
[2023-09-12] MEDS: buPROPion **XL** TABLET 150MG (WELLBUTRIN XL) PO SCH (09:27)
[2023-09-12] MEDS: INSULIN LISPRO (NovoLOG) PER UNIT SC SCH (09:28)
[2023-09-12 10:51] VITALS: O2SAT 94
[2023-09-12 12:00] VITALS: BP 110/55; TEMP 97.5; O2SAT 91
[2023-09-12 21:02] VITALS: BP 114/54; TEMP 98.6; O2SAT 88
[2023-09-12] MEDS: RAMELTEON 8 MG TAB (ROZEREM) PO PRN (21:19)
[2023-09-12] MEDS: MOM 30ML SUSPENSION UDC PO PRN (21:19)
[2023-09-12 21:20] VITALS: O2SAT 84
[2023-09-12] MEDS: MORPHINE 2 MG/ML 1ML VIAL IV PRN (21:23)
[2023-09-12 21:30] VITALS: O2SAT 90
[2023-09-13] VITALS (7 sets, daily range): BP systolic 115–134; BP diastolic 51–85; TEMP 97.2–97.9; O2SAT 88–93
[2023-09-13 06:11] LABS: BASO # 0.1 10^3/uL (0.0-0.2); BASO % 0.4 % (0.0-1.0); EOS # 0.3 10^3/uL (0.0-0.5); EOS % 1.4 % (0.0-3.0); HEMATOCRIT 24.7 % (42.0-52.0); HEMOGLOBIN 7.8 g/dl (13.5-17.5); LYMPH # 0.3 10^3/uL (1.5-5.0); LYMPH % 1.5 % (24.0-44.0); MEAN CORPUSCULAR HEMOGLOBIN 32.1 pg (27.0-33.0); MEAN CORPUSCULAR HGB CONC 31.6 g/dl (32.0-36.5); MEAN CORPUSCULAR VOLUME 101.6 fl (80.0-96.0); MONO # 0.7 10^3/uL (0.0-0.8); NEUTROPHILS # 17.1 10^3/uL (1.5-8.5); NEUTROPHILS % 91.6 % (36.0-66.0); PLATELET COUNT, AUTOMATED 245 10^3/uL (150-450); RED BLOOD COUNT 2.43 10^6/uL (4.30-6.10); WHITE BLOOD COUNT 18.7 10^3/uL (4.0-10.0)
[2023-09-13 06:46] LABS: ALBUMIN 1.9 G/DL (3.2-5.2); BILIRUBIN,TOTAL 0.5 MG/DL (0.3-1.2); CALCIUM LEVEL 10.2 MG/DL (8.3-10.6); CREATININE FOR GFR 1.49 MG/DL (0.70-1.30); GLOMERULAR FILTRATION RATE 48.8 (>42); MAGNESIUM LEVEL 2.2 MG/DL (1.8-2.4); POTASSIUM SERUM 4.5 MMOL/L (3.5-5.1); TOTAL PROTEIN 5.6 G/DL (5.7-8.2)
[2023-09-13] MEDS: TIOTROPIUM INHALER/CAPSULE (SPIRIVA) INH SCH (10:54)
[2023-09-13 13:28] LABS: ABG BASE EXCESS -3.5 (-2.0-2.0); ABG HCO3 20.6 MMOL/L (22.0-26.0); ABG O2 SATURATION 90.2 % (95.0-99.0); ABG PARTIAL PRESSURE CO2 33.2 mmHg (35.0-45.0); ABG PARTIAL PRESSURE O2 57.3 mmHg (75.0-100.0); ABG STANDARD HCO3 21.4 MMOL/L. (22.0-26.0); ABG TOTAL CO2 21.6 MMOL/L (23.0-31.0)
[2023-09-14 04:40] VITALS: BP 132/60; TEMP 98.1; O2SAT 90
[2023-09-14 08:50] VITALS: O2SAT 95
[2023-09-14] MEDS ORDERED: ENTER DRUG NAME HERE (PATIENT'S OWN MED) INH SCH (09:00)
[2023-09-14 09:33] LABS: HEMATOCRIT 27.2 % (42.0-52.0); HEMOGLOBIN 8.6 g/dl (13.5-17.5); MEAN CORPUSCULAR HEMOGLOBIN 32.2 pg (27.0-33.0); MEAN CORPUSCULAR HGB CONC 31.6 g/dl (32.0-36.5); MEAN CORPUSCULAR VOLUME 101.9 fl (80.0-96.0); PLATELET COUNT, AUTOMATED 231 10^3/uL (150-450); RED BLOOD COUNT 2.67 10^6/uL (4.30-6.10); WHITE BLOOD COUNT 14.8 10^3/uL (4.0-10.0)
[2023-09-14 10:00] LABS: CALCIUM LEVEL 11.1 MG/DL (8.3-10.6); CREATININE FOR GFR 1.43 MG/DL (0.70-1.30); GLOMERULAR FILTRATION RATE 51.2 (>42); POTASSIUM SERUM 4.1 MMOL/L (3.5-5.1)
[2023-09-14 10:18] VITALS: O2SAT 94
[2023-09-14 10:19] VITALS: O2SAT 95
[2023-09-14] MEDS: BISACODYL 10MG SUPP PR PRN (11:32)
[2023-09-14 12:00] VITALS: BP 131/59; TEMP 97.9; O2SAT 93
[2023-09-14] MEDS: FUROSEMIDE 40MG/4ML VIAL IV ONE (12:04)
[2023-09-14] MEDS: SODIUM CHLORIDE 0.9% INJ 10 ML SYR IV PRN (12:05)
[2023-09-14 14:03] LABS: PROCALCITONIN 1.38 ng/ml
[2023-09-14 20:50] VITALS: BP 129/59; TEMP 97.9; O2SAT 95
[2023-09-15 04:20] VITALS: BP 126/61; TEMP 97.5; O2SAT 93
[2023-09-15 06:45] LABS: BASO # 0.1 10^3/uL (0.0-0.2); BASO % 0.5 % (0.0-1.0); EOS # 0.4 10^3/uL (0.0-0.5); EOS % 2.8 % (0.0-3.0); HEMATOCRIT 25.5 % (42.0-52.0); LYMPH # 0.3 10^3/uL (1.5-5.0); LYMPH % 2.5 % (24.0-44.0); MEAN CORPUSCULAR HEMOGLOBIN 31.6 pg (27.0-33.0); MEAN CORPUSCULAR HGB CONC 31.4 g/dl (32.0-36.5); MEAN CORPUSCULAR VOLUME 100.8 fl (80.0-96.0); MONO # 0.9 10^3/uL (0.0-0.8); MONO % 6.8 % (2.0-8.0); NEUTROPHILS # 11.6 10^3/uL (1.5-8.5); NEUTROPHILS % 85.9 % (36.0-66.0); PLATELET COUNT, AUTOMATED 217 10^3/uL (150-450); RED BLOOD COUNT 2.53 10^6/uL (4.30-6.10); WHITE BLOOD COUNT 13.5 10^3/uL (4.0-10.0)
[2023-09-15 07:07] LABS: CALCIUM LEVEL 11.1 MG/DL (8.3-10.6); CREATININE FOR GFR 1.51 MG/DL (0.70-1.30); GLOMERULAR FILTRATION RATE 48.1 (>42)
[2023-09-15 12:00] VITALS: BP 101/54; TEMP 98.1; O2SAT 93
[2023-09-15 20:00] VITALS: BP 112/54; TEMP 98.6; O2SAT 88
[2023-09-16 04:00] VITALS: BP 136/63; TEMP 98.8; O2SAT 91
[2023-09-16 08:36] LABS: BASO # 0.1 10^3/uL (0.0-0.2); BASO % 0.6 % (0.0-1.0); EOS # 0.4 10^3/uL (0.0-0.5); EOS % 3.3 % (0.0-3.0); HEMATOCRIT 25.4 % (42.0-52.0); HEMOGLOBIN 7.8 g/dl (13.5-17.5); LYMPH # 0.4 10^3/uL (1.5-5.0); LYMPH % 3.8 % (24.0-44.0); MEAN CORPUSCULAR HEMOGLOBIN 31.5 pg (27.0-33.0); MEAN CORPUSCULAR HGB CONC 30.7 g/dl (32.0-36.5); MEAN CORPUSCULAR VOLUME 102.4 fl (80.0-96.0); MONO # 1.1 10^3/uL (0.0-0.8); MONO % 9.4 % (2.0-8.0); NEUTROPHILS # 9.2 10^3/uL (1.5-8.5); NEUTROPHILS % 81.8 % (36.0-66.0); PLATELET COUNT, AUTOMATED 209 10^3/uL (150-450); RED BLOOD COUNT 2.48 10^6/uL (4.30-6.10); WHITE BLOOD COUNT 11.3 10^3/uL (4.0-10.0)
[2023-09-16 09:16] LABS: CALCIUM LEVEL 10.7 MG/DL (8.3-10.6); POTASSIUM SERUM 4.1 MMOL/L (3.5-5.1)
[2023-09-16] MEDS: metOLazone 2.5 MG TAB PO ONE (11:31)
[2023-09-16] MEDS: AZITHROMYCIN 250MG TABLET PO ONE (11:31)
[2023-09-16 11:34] VITALS: BP 126/55
[2023-09-16 12:00] VITALS: BP 127/54; TEMP 97.7; O2SAT 87
[2023-09-16] MEDS: FUROSEMIDE 40MG/4ML VIAL IV ONE (12:08)
[2023-09-16 12:48] LABS: CREATININE FOR GFR 1.44 MG/DL (0.70-1.30); GLOMERULAR FILTRATION RATE 50.8 (>42)
[2023-09-16 13:40] LABS: PROCALCITONIN 1.5 ng/ml
[2023-09-16 20:00] VITALS: BP 135/66; TEMP 98.6; O2SAT 94
[2023-09-17 04:00] VITALS: BP 131/55; TEMP 98.8; O2SAT 91
[2023-09-17 06:28] LABS: BASO # 0.1 10^3/uL (0.0-0.2); BASO % 0.6 % (0.0-1.0); EOS # 0.4 10^3/uL (0.0-0.5); EOS % 3.5 % (0.0-3.0); HEMATOCRIT 26.4 % (42.0-52.0); HEMOGLOBIN 8.1 g/dl (13.5-17.5); LYMPH # 0.5 10^3/uL (1.5-5.0); LYMPH % 4.1 % (24.0-44.0); MEAN CORPUSCULAR HGB CONC 30.7 g/dl (32.0-36.5); MEAN CORPUSCULAR VOLUME 104.3 fl (80.0-96.0); MONO # 1.2 10^3/uL (0.0-0.8); MONO % 10.6 % (2.0-8.0); NEUTROPHILS # 8.9 10^3/uL (1.5-8.5); PLATELET COUNT, AUTOMATED 206 10^3/uL (150-450); RED BLOOD COUNT 2.53 10^6/uL (4.30-6.10); WHITE BLOOD COUNT 11.2 10^3/uL (4.0-10.0)
[2023-09-17 06:52] LABS: CALCIUM LEVEL 11.8 MG/DL (8.3-10.6); CREATININE FOR GFR 1.5 MG/DL (0.70-1.30); GLOMERULAR FILTRATION RATE 48.4 (>42); POTASSIUM SERUM 3.7 MMOL/L (3.5-5.1)
[2023-09-17] MEDS: AZITHROMYCIN 250MG TABLET PO SCH (08:03)
[2023-09-17 08:46] LABS: IONIZED CALCIUM 6.4 MG/DL (4.5-5.3)
[2023-09-17 09:13] LABS: MAGNESIUM LEVEL 1.8 MG/DL (1.8-2.4)
[2023-09-17 09:17] LABS: TOTAL 25(OH) VITAMIN D 27.7 NG/ML (20.0-100.0)
[2023-09-17] MEDS: CALCITONIN SALMON (MIACALCIN) 400INTERNATIONAL UNITS/2ML VIAL SQ SCH (11:21)
[2023-09-17 12:00] VITALS: BP 129/55; TEMP 97.5; O2SAT 96
[2023-09-17] MEDS: ONDANSETRON 4MG TAB PO PRN (16:13)
[2023-09-17] MEDS: ZOLEDRONIC ACID 4 MG in IV 1 EA IV ONE (16:55)
[2023-09-17 17:12] LABS: URINE STREP PNEUMONIAE ANTIGEN NOT DETECTED (NOT DETECT)
[2023-09-17 19:27] LABS: IONIZED CALCIUM 6.2 MG/DL (4.5-5.3)
[2023-09-17 20:00] VITALS: BP 157/66; TEMP 98.2; O2SAT 99
[2023-09-17] MEDS: SENOKOT S TAB PO SCH (20:05)
[2023-09-17] MEDS: ONDANSETRON 4MG 2ML VIAL IV ONE (20:05)
[2023-09-17 20:21] LABS: BILIRUBIN,TOTAL 0.4 MG/DL (0.3-1.2); CALCIUM LEVEL 11.5 MG/DL (8.3-10.6); CREATININE FOR GFR 1.46 MG/DL (0.70-1.30); MAGNESIUM LEVEL 1.9 MG/DL (1.8-2.4); POTASSIUM SERUM 3.7 MMOL/L (3.5-5.1); TOTAL PROTEIN 6.2 G/DL (5.7-8.2)
[2023-09-17] MEDS: BISACODYL 10MG SUPP PR SCH (21:05)
[2023-09-17 22:31] VITALS: O2SAT 93
[2023-09-18 04:00] VITALS: BP 121/53; TEMP 97.9; O2SAT 92
[2023-09-18 06:45] LABS: BASO # 0.1 10^3/uL (0.0-0.2); BASO % 0.5 % (0.0-1.0); EOS # 0.4 10^3/uL (0.0-0.5); EOS % 3.4 % (0.0-3.0); HEMATOCRIT 28.1 % (42.0-52.0); HEMOGLOBIN 8.7 g/dl (13.5-17.5); LYMPH # 0.4 10^3/uL (1.5-5.0); MEAN CORPUSCULAR VOLUME 103.3 fl (80.0-96.0); MONO # 1.2 10^3/uL (0.0-0.8); MONO % 9.6 % (2.0-8.0); NEUTROPHILS # 10.1 10^3/uL (1.5-8.5); NEUTROPHILS % 82.8 % (36.0-66.0); PLATELET COUNT, AUTOMATED 220 10^3/uL (150-450); RED BLOOD COUNT 2.72 10^6/uL (4.30-6.10); WHITE BLOOD COUNT 12.2 10^3/uL (4.0-10.0)
[2023-09-18 07:10] LABS: CALCIUM LEVEL 11.6 MG/DL (8.3-10.6); CREATININE FOR GFR 1.64 MG/DL (0.70-1.30); GLOMERULAR FILTRATION RATE 43.7 (>42); POTASSIUM SERUM 3.8 MMOL/L (3.5-5.1)
[2023-09-18 07:20] VITALS: O2SAT 94
[2023-09-18 12:00] VITALS: BP 121/53; TEMP 97.3; O2SAT 92
[2023-09-18 13:18] VITALS: O2SAT 94
[2023-09-18 21:10] VITALS: BP 123/54; TEMP 97.2; O2SAT 94
[2023-09-19 04:00] VITALS: BP 123/54; TEMP 97.7; O2SAT 92
[2023-09-19 07:10] LABS: BASO % 0.4 % (0.0-1.0); EOS # 0.4 10^3/uL (0.0-0.5); EOS % 3.8 % (0.0-3.0); HEMATOCRIT 26.1 % (42.0-52.0); LYMPH # 0.3 10^3/uL (1.5-5.0); LYMPH % 3.1 % (24.0-44.0); MEAN CORPUSCULAR HEMOGLOBIN 31.6 pg (27.0-33.0); MEAN CORPUSCULAR HGB CONC 30.7 g/dl (32.0-36.5); MEAN CORPUSCULAR VOLUME 103.2 fl (80.0-96.0); MONO # 0.9 10^3/uL (0.0-0.8); MONO % 8.7 % (2.0-8.0); NEUTROPHILS % 83.1 % (36.0-66.0); PLATELET COUNT, AUTOMATED 224 10^3/uL (150-450); RED BLOOD COUNT 2.53 10^6/uL (4.30-6.10); WHITE BLOOD COUNT 10.8 10^3/uL (4.0-10.0)
[2023-09-19 07:34] LABS: CALCIUM LEVEL 10.7 MG/DL (8.3-10.6); CREATININE FOR GFR 2.2 MG/DL (0.70-1.30); GLOMERULAR FILTRATION RATE 31.1 (>42); POTASSIUM SERUM 3.6 MMOL/L (3.5-5.1)
[2023-09-19] MEDS: POTASSIUM CHLORIDE 10MEQ SR TABLET PO ONE (09:08)
[2023-09-19 12:00] VITALS: BP 115/52; TEMP 97.3; O2SAT 97
[2023-09-19 20:00] VITALS: BP 101/47; TEMP 97.9; O2SAT 92
[2023-09-20 04:14] VITALS: BP 118/50; TEMP 98.2; O2SAT 92
[2023-09-20 06:28] LABS: BASO # 0.1 10^3/uL (0.0-0.2); BASO % 0.6 % (0.0-1.0); EOS # 0.5 10^3/uL (0.0-0.5); EOS % 4.7 % (0.0-3.0); HEMATOCRIT 24.6 % (42.0-52.0); HEMOGLOBIN 7.6 g/dl (13.5-17.5); LYMPH # 0.3 10^3/uL (1.5-5.0); LYMPH % 3.3 % (24.0-44.0); MEAN CORPUSCULAR HEMOGLOBIN 31.1 pg (27.0-33.0); MEAN CORPUSCULAR HGB CONC 30.9 g/dl (32.0-36.5); MEAN CORPUSCULAR VOLUME 100.8 fl (80.0-96.0); MONO # 0.9 10^3/uL (0.0-0.8); MONO % 8.5 % (2.0-8.0); NEUTROPHILS # 8.4 10^3/uL (1.5-8.5); NEUTROPHILS % 82.3 % (36.0-66.0); PLATELET COUNT, AUTOMATED 215 10^3/uL (150-450); RED BLOOD COUNT 2.44 10^6/uL (4.30-6.10); WHITE BLOOD COUNT 10.3 10^3/uL (4.0-10.0)
[2023-09-20 06:55] LABS: CALCIUM LEVEL 10.1 MG/DL (8.3-10.6); CREATININE FOR GFR 2.6 MG/DL (0.70-1.30); GLOMERULAR FILTRATION RATE 25.7 (>42); POTASSIUM SERUM 3.4 MMOL/L (3.5-5.1)
[2023-09-20 07:34] LABS: ALBUMIN 1.8 G/DL (3.2-5.2)
[2023-09-20] MEDS: ACETAMINOPHEN TAB 650MG DOSE (2X325MG) PO PRN (07:57)
[2023-09-20] MEDS: KCL 20MEQ in NS 1000ML 1,000 ML IV SCH (07:58)
[2023-09-20] MEDS ORDERED: LORazepam 1 MG TAB PO PRN (09:55)
[2023-09-20] MEDS ORDERED: SCOPOLAMINE 1MG TRANSDERMAL PATCH TOP PRN (09:55)
[2023-09-20 20:00] VITALS: O2SAT 93
[2023-09-22] MEDS ORDERED: HYOS125TA PO (07:28)
[2023-09-22] MEDS ORDERED: MORP1SOL5 PO (07:28)
[2023-09-22] MEDS ORDERED: ATIV1TAB10 PO (07:28)
[2023-09-22] MEDS: MORPHINE 10MG/0.5ML ORAL CONCENTRATE SOLUTION U/D SL PRN (13:18)
== END 2023-09-22 13:22 | disposition home health service (06) | DRG 871 ==
LOC: M ED 15:37 → M ED INP 19:28 → M MSPAV 22:16
PROVIDERS: ADMIT Internal Medicine; ATTEND Internal Medicine
PROC: 30233N1 Transfusion of Nonautologous Red Blood Cells into Peripheral Vein, Percutaneous Approach (ICD-10-PCS; principal; 2023-09-11)
PROC: B246ZZZ Ultrasonography of Right and Left Heart (ICD-10-PCS; 2023-09-13)
DX: A41.9 Sepsis, unspecified organism (principal); J18.9 Pneumonia, unspecified organism; J96.00 Acute respiratory failure, unspecified whether with hypoxia or hypercapnia; C64.9 Malignant neoplasm of unspecified kidney, except renal pelvis; E46 Unspecified protein-calorie malnutrition; N17.9 Acute kidney failure, unspecified; E87.1 Hypo-osmolality and hyponatremia; G93.40 Encephalopathy, unspecified; N13.30 Unspecified hydronephrosis; C78.00 Secondary malignant neoplasm of unspecified lung; N39.0 Urinary tract infection, site not specified; C78.7 Secondary malignant neoplasm of liver and intrahepatic bile duct; C77.3 Secondary and unspecified malignant neoplasm of axilla and upper limb lymph nodes; R26.89 Other abnormalities of gait and mobility; Z66 Do not resuscitate; N18.30 Chronic kidney disease, stage 3 unspecified; R74.01 Elevation of levels of liver transaminase levels; E03.9 Hypothyroidism, unspecified; G47.33 Obstructive sleep apnea (adult) (pediatric); F32.A Depression, unspecified; F41.9 Anxiety disorder, unspecified; I12.9 Hypertensive chronic kidney disease with stage 1 through stage 4 chronic kidney disease, or unspecified chronic kidney disease; R65.20 Severe sepsis without septic shock; D63.8 Anemia in other chronic diseases classified elsewhere; E83.52 Hypercalcemia; M19.90 Unspecified osteoarthritis, unspecified site; N40.1 Benign prostatic hyperplasia with lower urinary tract symptoms; E78.5 Hyperlipidemia, unspecified; E11.22 Type 2 diabetes mellitus with diabetic chronic kidney disease; M54.2 Cervicalgia; M54.50 Low back pain, unspecified; G89.29 Other chronic pain; Z85.46 Personal history of malignant neoplasm of prostate; Z85.54 Personal history of malignant neoplasm of ureter; Z87.891 Personal history of nicotine dependence; Z86.711 Personal history of pulmonary embolism; Z92.21 Personal history of antineoplastic chemotherapy; Z79.890 Hormone replacement therapy; E87.6 Hypokalemia